=== PATIENT | female | born 1935 | race Caucasian/White ===

== ENCOUNTER 2020-09-09 09:39 | Inpatient (IN) | payer MEDICARE, MEDICAID ==
[~2020-09-09] VITALS: Ht 165.1 cm; Wt 81.0 kg
[2020-09-09] VITALS (13 sets, daily range): BP systolic 80–119; BP diastolic 45–80
--- NOTE | 2020-09-09 09:57 | Emergency Room Report ---
History of Present Illness General Chief Complaint: General Complaint Present Illness HPI Patient is an 84-year-old female sent in from nursing facility after increased generalized weakness and failure to thrive. She is noted to have low hemoglobin. Patient reportedly had decreased oral intake. She is normally hypertensive but was noted to have low blood pressure. History is markedly limited by patient's mental status and poor historian. 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 COVID-19 Screening: Positive COVID-19 COVID-19 Testing Source: Rapid Patient History Past Medical History: see triage record Reviewed Nursing Documentation: PMH: Agreed; PSxH: Agreed Review of Systems All Other Systems: negative except mentioned in HPI Physical Exam Vital Signs Date Time Temp Pulse Resp B/P (MAP) Pulse Ox O2 Delivery O2 Flow Rate FiO2 09/09/20 09:36 97.9 120 21 100/60 (73) 95 Room Air Sp02 EP Interpretation: reviewed, normal General Appearance: normal inspection, alert, GCS 15, Chronically Ill Head: atraumatic ENT: normal ENT inspection, hearing grossly normal, normal voice Neck: normal inspection, full range of motion, supple, no bony tend Respiratory: normal inspection, lungs clear, normal breath sounds, no respiratory distress, no retraction, no wheezing Cardiovascular #1: regular rate, rhythm, no edema Gastrointestinal: normal inspection, normal bowel sounds, non tender, soft, no guarding, no hernia Genitourinary: no CVA tenderness Musculoskeletal: normal inspection, back normal, normal range of motion Neurologic: alert, responsive, speech normal, normal inspection, other - Pill- rolling tremor to the right upper extremity, bilateral lower extremity weakness Psychiatric: judgement/insight normal, mood/affect normal, anxious Skin: no rash Procedures Critical Care Time Critical Care Time Patient had a critical medical condition which untreated could potentially result in life or limb threatening injury. Total critical care time excluding procedures approximately 45 minutes. Medical Decision Making Diagnostic Impression: Primary Impression: Severe anemia Additional Impressions: On continuous oral anticoagulation Hypotension ER Course Patient presented for generalized weakness.Differential diagnosis include was not limited to anemia, GI bleeding, myocardial infarction, sepsis among others. Because of complexity of patient's case laboratory tests and imaging studies were ordered. Patient was noted to have some pallor initially. Apparently had a low hemoglobin on blood draw from 1 month ago. Laboratory testing at this time showed significant anemia. Patient was typed and crossed for blood patient started on blood transfusion emergently. Patient is unable to perform consent. She has no known contacts. Dr. Yañez was contacted for inpatient management due to primary care physician. Patient be admitted to ICU in critical condition. Labs Test 09/09/20 10:00 09/09/20 10:20 09/09/20 10:50 09/09/20 11:10 Sodium Level 143 MMOL/L (136-145) Potassium Level 3.7 MMOL/L (3.5-5.1) Chloride Level 109 MMOL/L (98-107) Carbon Dioxide Level 24 MMOL/L (21-32) Anion Gap 10 mmol/L (5-15) Blood Urea Nitrogen 31 mg/dL (7-18) Creatinine 0.8 MG/DL (0.55-1.30) Estimat Glomerular Filtration Rate > 60 mL/min (>60) Glucose Level 104 MG/DL (74-106) Calcium Level 7.6 MG/DL (8.5-10.1) Phosphorus Level 2.5 MG/DL (2.5-4.9) Magnesium Level 2.0 MG/DL (1.8-2.4) Total Bilirubin 0.1 MG/DL (0.2-1.0) Aspartate Amino Transf (AST/SGOT) 41 U/L (15-37) Alanine Aminotransferase (ALT/SGPT) 29 U/L (12-78) Alkaline Phosphatase 61 U/L (46-116) Total Creatine Kinase 37 U/L (26-308) Creatine Kinase MB 0.9 NG/ML (0.0-3.6) Creatine Kinase MB Relative Index 2.4 Troponin I 0.004 ng/mL (0.000-0.056) Pro-B-Type Natriuretic Peptide 883 pg/mL (0-125) Total Protein 5.3 G/DL (6.4-8.2) Albumin 2.0 G/DL (3.4-5.0) Globulin 3.3 g/dL Albumin/Globulin Ratio 0.6 (1.0-2.7) Lipase 101 U/L (73-393) Urine Color Pale yellow Urine Appearance Slightly cloudy Urine pH 6.5 (4.5-8.0) Urine Specific Sylvester 1.015 (1.005-1.035) Urine Protein 2+ (NEGATIVE) Urine Glucose (UA) Negative (NEGATIVE) Urine Ketones Negative (NEGATIVE) Urine Blood 1+ (NEGATIVE) Urine Nitrite Negative (NEGATIVE) Urine Bilirubin Negative (NEGATIVE) Urine Urobilinogen Normal MG/DL (0.0-1.0) Urine Leukocyte Esterase 3+ (NEGATIVE) Urine RBC 0-2 /HPF (0 - 2) Urine WBC 20-30 /HPF (0 - 2) Urine Squamous Epithelial Cells Few /LPF (NONE/OCC) Urine Bacteria Few /HPF (NONE) White Blood Count 9.9 K/UL (4.8-10.8) Red Blood Count 1.63 M/UL (4.20-5.40) Hemoglobin 3.8 G/DL (12.0-16.0) Hematocrit 12.7 % (37.0-47.0) Mean Corpuscular Volume 78 FL (80-99) Mean Corpuscular Hemoglobin 23.2 PG (27.0-31.0) Mean Corpuscular Hemoglobin Concent 29.7 G/DL (32.0-36.0) Red Cell Distribution Width 29.1 % (11.6-14.8) Platelet Count 440 K/UL (150-450) Mean Platelet Volume 6.4 FL (6.5-10.1) Neutrophils (%) (Auto) % (45.0-75.0) Lymphocytes (%) (Auto) % (20.0-45.0) Monocytes (%) (Auto) % (1.0-10.0) Eosinophils (%) (Auto) % (0.0-3.0) Basophils (%) (Auto) % (0.0-2.0) Differential Total Cells Counted 100 Neutrophils % (Manual) 84 % (45-75) Lymphocytes % (Manual) 10 % (20-45) Monocytes % (Manual) 5 % (1-10) Eosinophils % (Manual) 0 % (0-3) Basophils % (Manual) 1 % (0-2) Band Neutrophils 0 % (0-8) Nucleated Red Blood Cells 2 /100 WBC Platelet Estimate Adequate Platelet Morphology Normal Polychromasia 2+ Hypochromasia 2+ Anisocytosis 3+ Microcytosis 2+ Lactic Acid Level 2.00 mmol/L (0.66-2.22) EKG Diagnostic Results Rate: tachycardiac Rhythm: NSR ST Segments: no acute changes Last Vital Signs Date Time Temp Pulse Resp B/P (MAP) Pulse Ox O2 Delivery O2 Flow Rate FiO2 09/09/20 09:36 97.9 120 21 100/60 (73) 95 Room Air Status: unchanged Disposition: ADMITTED INPATIENT Condition: Critical Asim Oakley MD Sep 09, 2020 09:57
[2020-09-09 10:41] LABS: APPEARANCE,URINE SLIGHTLY CLOUDY; BILIRUBIN, URINE NEGATIVE (NEGATIVE); COLOR,URINE PALE YELLOW; GLUCOSE, URINE (UA) NEGATIVE (NEGATIVE); KETONES,URINE NEGATIVE (NEGATIVE); LEUKOCYTE ESTERASE ,URINE 3+ (NEGATIVE); NITRITE,URINE NEGATIVE (NEGATIVE); PH,URINE 6.5 (4.5-8.0); PROTEIN,URINE 2+ (NEGATIVE); UROBILINOGEN,URINE NORMAL MG/DL (0.0-1.0)
[2020-09-09] MEDS ORDERED: CARVEDILOL6.25 MG ORAL (10:53)
[2020-09-09 10:55] LABS: ANION GAP 10 mmol/L (5-15); BLOOD UREA NITROGEN 31 mg/dL (7-18); CALCIUM 7.6 MG/DL (8.5-10.1); CARBON DIOXIDE 24 MMOL/L (21-32); CHLORIDE 109 MMOL/L (98-107); CREATININE 0.8 MG/DL (0.55-1.30); POTASSIUM 3.7 MMOL/L (3.5-5.1); SODIUM 143 MMOL/L (136-145)
[2020-09-09] MEDS ORDERED: Pantoprazole Inj IVP ONE (11:00)
[2020-09-09] MEDS ORDERED: cefTRIAXone 1 GM in NS 55 ML IVPB ONE (11:00)
[2020-09-09 11:09] LABS: ALANINE AMINOTRANSFERASE 29 U/L (12-78); ALBUMIN/GLOBULIN RATIO 0.6 (1.0-2.7); ALKALINE PHOSPHATASE 61 U/L (46-116); ASPARTATE AMINO TRANSFERASE 41 U/L (15-37); BILIRUBIN,TOTAL 0.1 MG/DL (0.2-1.0); CKMB 0.9 NG/ML (0.0-3.6); CREATINE KINASE 37 U/L (26-308); PHOSPHORUS 2.5 MG/DL (2.5-4.9)
[2020-09-09 11:12] LABS: HEMATOCRIT 12.7 % (37.0-47.0); MEAN CORPUSCULAR VOLUME 78 FL (80-99); PLATELET COUNT 440 K/UL (150-450); RED BLOOD COUNT 1.63 M/UL (4.20-5.40); RED CELL DISTRIBUTION WIDTH 29.1 % (11.6-14.8); WHITE BLOOD COUNT 9.9 K/UL (4.8-10.8)
[2020-09-09] MEDS ORDERED: FAMOTIDINE20 MG ORAL (11:18)
[2020-09-09] MEDS ORDERED: MIRTAZAPINE15 MG ORAL (11:18)
[2020-09-09] MEDS ORDERED: MULTI-VITAMIN1 EACH PO (11:18)
[2020-09-09] MEDS ORDERED: QUETIAPINE FUMA50 MG ORAL (11:18)
[2020-09-09] MEDS ORDERED: CALCIUM CARBON300 MG PO (11:18)
[2020-09-09] MEDS ORDERED: ASCORBIC ACID500 MG ORAL (11:18)
[2020-09-09 11:19] LABS: HEMOGLOBIN 3.8 G/DL (12.0-16.0)
[2020-09-09] MEDS ORDERED: FERROUS SULFAT325 MG ORAL (11:20)
[2020-09-09] MEDS ORDERED: PRADAXA150 MG ORAL (11:39)
[2020-09-09] MEDS ORDERED: FOSAMAX70 MG ORAL (11:39)
[2020-09-09] MEDS: D5NS 1,000 ML IV SCH (14:10)
[2020-09-09] MEDS ORDERED: Lidocaine 1% Plain 30 ml INJ ONE (14:46)
--- NOTE | 2020-09-09 15:00 | Emergency Room Report ---
Physical Exam Vital Signs Date Time Temp Pulse Resp B/P (MAP) Pulse Ox O2 Delivery O2 Flow Rate FiO2 09/09/20 09:36 97.9 120 21 100/60 (73) 95 Room Air 09/09/20 10:00 99 Sp02 EP Interpretation: reviewed, normal Medical Decision Making Diagnostic Impression: Primary Impression: Severe anemia Additional Impressions: On continuous oral anticoagulation Hypotension ER Course I was consulted by ICU for central line placement Emergent consent obtained As patient is nonverbal. She has critical anemia and hypotension requiring multiple IV access points Central Line Placement by me: Patient consented, sterilely draped, full prep, gown, glove, mask, time out performed. Maximal sterile barrier technique used. Anesthesia: 1% lidocaine locally Location: Femoral vein Device: Multiple lumen Technique: Seldinger technique. Secured with suture. Results: Venous return from all ports with easy saline flush. No complications. Compl : None Guide wire was retrieved and disposed of. ED Procedural Ultrasound by me: Central line placed by me using concurrent ultrasound guidance. Real time image archived in the medical record confirms vascular anatomy. Patient tolerated procedure well without complications Last Vital Signs Date Time Temp Pulse Resp B/P (MAP) Pulse Ox O2 Delivery O2 Flow Rate FiO2 09/09/20 13:42 98.1 94 18 09/09/20 13:31 92/55 97 Room Air 09/09/20 10:00 99 Disposition: ADMITTED INPATIENT Condition: Critical Referrals: Sae Yañez MD (PCP) Nella Foley D.O. Sep 09, 2020 15:00
--- NOTE | 2020-09-09 15:31 | Diagnostic Imaging Report ---
Indication: Shortness of breath Technique: One view of the chest Comparison: none Findings: Patient is rotated to the right. There may be a hiatal hernia. The lungs and pleural spaces are probably clear. The aorta is tortuous. The heart size is upper limits normal. Impression: Findings as noted. Doubt acute process
[2020-09-09] MEDS: Pantoprazole Inj IVP SCH (18:03)
[2020-09-09] MEDS: Ascorbic Acid 500mg tab ORAL SCH (18:03)
[2020-09-09] MEDS ORDERED: Dyna-Hex 2% Top Sol 2oz TOPIC SCH (21:15)
[2020-09-10] VITALS (24 sets, daily range): BP systolic 100–125; BP diastolic 54–68
[2020-09-10] MEDS: D5NS 1,000 ML IV SCH (00:11)
[2020-09-10 04:51] LABS: BASOPHILS % (AUTO) 0.7 % (0.0-2.0); EOSINOPHILS % (AUTO) 3.5 % (0.0-3.0); HEMATOCRIT 28.9 % (37.0-47.0); LYMPHOCYTES % (AUTO) 11.5 % (20.0-45.0); MEAN CORPUSCULAR VOLUME 83 FL (80-99); MONOCYTES % (AUTO) 8.4 % (1.0-10.0); NEUTROPHILS % (AUTO) 75.8 % (45.0-75.0); PLATELET COUNT 345 K/UL (150-450); RED CELL DISTRIBUTION WIDTH 18.5 % (11.6-14.8); WHITE BLOOD COUNT 9.6 K/UL (4.8-10.8)
[2020-09-10 05:12] LABS: % IRON SATURATION 12 % (15-50); IRON 28 ug/dL (50-175); TOTAL IRON BINDING CAPACITY 235 ug/dL (250-450)
[2020-09-10 05:15] LABS: ALANINE AMINOTRANSFERASE 18 U/L (12-78); ALBUMIN 1.8 G/DL (3.4-5.0); ALBUMIN/GLOBULIN RATIO 0.6 (1.0-2.7); ALKALINE PHOSPHATASE 58 U/L (46-116); ANION GAP 8 mmol/L (5-15); ASPARTATE AMINO TRANSFERASE 21 U/L (15-37); BILIRUBIN,TOTAL 0.6 MG/DL (0.2-1.0); BLOOD UREA NITROGEN 22 mg/dL (7-18); CALCIUM 6.7 MG/DL (8.5-10.1); CARBON DIOXIDE 21 MMOL/L (21-32); CHLORIDE 114 MMOL/L (98-107); CREATININE 0.7 MG/DL (0.55-1.30); POTASSIUM 3.3 MMOL/L (3.5-5.1); SODIUM 143 MMOL/L (136-145)
--- NOTE | 2020-09-10 08:00 | History and Physical Report ---
DATE OF ADMISSION: 09/09/2020 HISTORY OF PRESENT ILLNESS: 84-year-old female, well known to me. She has a history of COPD, atrial fibrillation, hypertension, and dementia. She was transferred custodial facility. She was noted to be weak and more confused. On evaluation in the emergency room, she had a hgb 3. no c/o melena, hematemesis, or hematuria. The patient was T and crossed and transfused 4 units of packed red blood cells and is now admitted to the intensive care unit. She was also noted to be in AFib with RVR upon presentation to the ER. She was awake, but weak and somnolent and withdrawn. PAST MEDICAL HISTORY: As above. PAST SURGICAL HISTORY: none CURRENT MEDICATIONS: reviewed/reconcilled ALLERGIES: None. REVIEW OF SYSTEMS: Unobtainable as the patient is confused. PHYSICAL EXAMINATION: VITAL SIGNS: Temperature 98, pulse 120, respirations 21, and blood pressure 100/60. GENERAL: The patient is well-developed well nourished female, in no apparent distress. HEENT: Head is normocephalic and atraumatic. Oropharynx is clear. Mucous membranes are moist. NECK: Supple. HEART: Irregularly irregular. LUNGS: Clear. ABDOMEN: Soft, nontender, nondistended. EXTREMITIES: There is no clubbing, cyanosis, or edema. LABORATORY DATA: UA showed 20-30 wbc's. Sodium 143, potassium nml hematocrit 12.7, platelets 440. Chest x-ray is clear. ASSESSMENT: This is an elderly female with a history of dementia and afib admitted with GI bleed. PLAN: serial cbc. IV proton pump inhibitor, IV fluids, clear liquid diet. Cardiology and GI consultations will be obtained. Check stool for occult blood and an iron panel Sae Yañez M.D. DR: TATA JOB#: [id number] CC: COURTNEY
[2020-09-10] MEDS: Carvedilol 6.25mg Tab ORAL SCH (08:35)
[2020-09-10] MEDS: Ascorbic Acid 500mg tab ORAL SCH ×2 (08:35→17:03)
[2020-09-10] MEDS: Pantoprazole Inj IVP SCH ×2 (08:35→17:03)
[2020-09-10] MEDS ORDERED: CALCIUM CARBON500 M1 PO (15:00)
[2020-09-10] MEDS ORDERED: BISACODYL5 MG ORAL (15:00)
[2020-09-10] MEDS ORDERED: DOCUSATE SODIU100 MG ORAL (15:00)
[2020-09-10] MEDS ORDERED: VITAMIN D250 MC1 PO (15:00)
[2020-09-10] MEDS ORDERED: QUETIAPINE FUMA25 MG ORAL (15:00)
[2020-09-10] MEDS ORDERED: ACETAMINOPHEN325 M1 ORAL (15:01)
--- NOTE | 2020-09-10 16:19 | General Progress Note ---
Subjective Allergies: Coded Allergies: No Known Allergies (Unverified , 09/09/20) Objective Last 24 Hour Vital Signs Date Time Temp Pulse Resp B/P (MAP) Pulse Ox O2 Delivery O2 Flow Rate FiO2 09/10/20 15:00 87 19 113/59 (77) 97 09/10/20 14:00 87 21 120/63 (82) 98 09/10/20 13:00 88 21 112/55 (74) 99 09/10/20 12:00 Room Air 09/10/20 12:00 99.1 87 20 110/58 (75) 98 09/10/20 11:49 86 09/10/20 11:00 92 19 106/59 (75) 99 09/10/20 10:00 85 20 109/63 (78) 98 09/10/20 09:00 91 23 115/60 (78) 98 09/10/20 08:35 92 106/61 09/10/20 08:00 Room Air 09/10/20 08:00 98.2 93 22 106/61 (76) 97 09/10/20 07:27 95 09/10/20 07:00 91 19 108/55 (72) 98 09/10/20 06:00 93 20 109/60 (76) 98 09/10/20 05:00 95 17 117/61 (79) 98 09/10/20 04:00 93 09/10/20 04:00 Room Air 09/10/20 04:00 98.4 95 19 122/68 (86) 99 09/10/20 03:00 82 21 106/55 (72) 98 09/10/20 02:00 78 20 124/57 (79) 99 09/10/20 01:00 75 19 109/54 (72) 99 09/10/20 00:00 Room Air 09/10/20 00:00 90 09/10/20 00:00 98.6 90 19 107/56 (73) 98 09/09/20 23:00 87 19 106/56 (73) 99 09/09/20 22:00 86 22 115/63 (80) 98 09/09/20 21:00 78 20 112/62 (79) 100 09/09/20 20:15 80 23 103/52 (69) 99 09/09/20 20:00 80 09/09/20 20:00 Room Air 09/09/20 20:00 98.7 81 22 106/52 (70) 99 09/09/20 19:00 86 17 116/59 (78) 100 09/09/20 18:00 98.8 86 20 118/66 (83) 100 09/09/20 17:00 93 21 106/67 (80) 100 Intake and Output 09/09/20 09/10/20 19:00 07:00 Intake Total 750 ml 1040 ml Output Total 160 ml 1750 ml Balance 590 ml -710 ml IV Total 500 ml 790 ml Blood Product 250 ml 250 ml Output Urine Total 160 ml 1750 ml # Voids 1 Laboratory Tests 09/10/20 04:00: White Blood Count 9.6, Red Blood Count 3.50L, Hemoglobin 10.0#L, Hematocrit 28.9#L, Mean Corpuscular Volume 83, Mean Corpuscular Hemoglobin 28.5, Mean Corpuscular Hemoglobin Concent 34.5, Red Cell Distribution Width 18.5H, Platelet Count 345, Mean Platelet Volume 6.6, Neutrophils (%) (Auto) 75.8H, Lymphocytes (%) (Auto) 11.5L, Monocytes (%) (Auto) 8.4, Eosinophils (%) (Auto) 3.5H, Basophils (%) (Auto) 0.7, Sodium Level 143, Potassium Level 3.3L, Chloride Level 114H, Carbon Dioxide Level 21, Anion Gap 8, Blood Urea Nitrogen 22H, Creatinine 0.7, Estimat Glomerular Filtration Rate > 60, Glucose Level 102, Calcium Level 6.7L, Iron Level 28L, Total Iron Binding Capacity 235L, Percent Iron Saturation 12L, Unsaturated Iron Binding 207, Total Bilirubin 0.6, Aspartate Amino Transf (AST/SGOT) 21, Alanine Aminotransferase (ALT/SGPT) 18, Alkaline Phosphatase 58, Troponin I 0.017, Total Protein 4.6L, Albumin 1.8L, Globulin 2.8, Albumin/Globulin Ratio 0.6L, Thyroid Stimulating Hormone (TSH) 3.122 Height (Feet): 5 Height (Inches): 7.00 Weight (Pounds): 130 Assessment/Plan Assessment/Plan: Assessment - Severe anemia, microcytic and Iron deficient - no melena, CG emesis or other sign of acute GIB - OBS - COPD - HTN - atrial fib Recommendations - Transfuse PRN - PPI - IV Iron - monitor labs - po ad rene - locate next of kin Thank you MD Emerita Gudino Payman MD Sep 10, 2020 16:19
--- NOTE | 2020-09-10 17:33 | Cardiology Progress Note ---
Subjective DATE OF SERVICE: Sep 10, 2020 S/P PRBC transfusions - hemoglobin has increased from 3 to 10 gm/dl. No signs of active bleeding at this time. Monitor: Sinus with atrial ectopy Objective Last 24 Hour Vital Signs Date Time Temp Pulse Resp B/P (MAP) Pulse Ox O2 Delivery O2 Flow Rate FiO2 09/10/20 17:00 92 22 124/65 (84) 98 09/10/20 16:00 99.6 87 21 120/60 (80) 97 09/10/20 16:00 Room Air 09/10/20 15:40 89 09/10/20 15:00 87 19 113/59 (77) 97 09/10/20 14:00 87 21 120/63 (82) 98 09/10/20 13:00 88 21 112/55 (74) 99 09/10/20 12:00 Room Air 09/10/20 12:00 99.1 87 20 110/58 (75) 98 09/10/20 11:49 86 09/10/20 11:00 92 19 106/59 (75) 99 09/10/20 10:00 85 20 109/63 (78) 98 09/10/20 09:00 91 23 115/60 (78) 98 09/10/20 08:35 92 106/61 09/10/20 08:00 Room Air 09/10/20 08:00 98.2 93 22 106/61 (76) 97 09/10/20 07:27 95 09/10/20 07:00 91 19 108/55 (72) 98 09/10/20 06:00 93 20 109/60 (76) 98 09/10/20 05:00 95 17 117/61 (79) 98 09/10/20 04:00 93 09/10/20 04:00 Room Air 09/10/20 04:00 98.4 95 19 122/68 (86) 99 09/10/20 03:00 82 21 106/55 (72) 98 09/10/20 02:00 78 20 124/57 (79) 99 09/10/20 01:00 75 19 109/54 (72) 99 09/10/20 00:00 Room Air 09/10/20 00:00 90 09/10/20 00:00 98.6 90 19 107/56 (73) 98 09/09/20 23:00 87 19 106/56 (73) 99 09/09/20 22:00 86 22 115/63 (80) 98 09/09/20 21:00 78 20 112/62 (79) 100 09/09/20 20:15 80 23 103/52 (69) 99 09/09/20 20:00 80 09/09/20 20:00 Room Air 09/09/20 20:00 98.7 81 22 106/52 (70) 99 09/09/20 19:00 86 17 116/59 (78) 100 09/09/20 18:00 98.8 86 20 118/66 (83) 100 ROS: unchanged from my initial evaluation on 09/09/20. RHYTHM: NSR, ST, PACs LUNGS: normal breath sounds CARDIAC: normal rate, regular rhythm, normal S1 and S2, systolic murmur - 1/6 systolic ej murmur at base ABDOMEN: normal bowel sounds, non tender, soft, no organomegaly EXTREMITIES: normal range of motion, non-tender Laboratory Tests Test 09/10/20 04:00 White Blood Count 9.6 K/UL (4.8-10.8) Red Blood Count 3.50 M/UL (4.20-5.40) L Hemoglobin 10.0 G/DL (12.0-16.0) #L Hematocrit 28.9 % (37.0-47.0) #L Mean Corpuscular Volume 83 FL (80-99) Mean Corpuscular Hemoglobin 28.5 PG (27.0-31.0) Mean Corpuscular Hemoglobin Concent 34.5 G/DL (32.0-36.0) Red Cell Distribution Width 18.5 % (11.6-14.8) H Platelet Count 345 K/UL (150-450) Mean Platelet Volume 6.6 FL (6.5-10.1) Neutrophils (%) (Auto) 75.8 % (45.0-75.0) H Lymphocytes (%) (Auto) 11.5 % (20.0-45.0) L Monocytes (%) (Auto) 8.4 % (1.0-10.0) Eosinophils (%) (Auto) 3.5 % (0.0-3.0) H Basophils (%) (Auto) 0.7 % (0.0-2.0) Sodium Level 143 MMOL/L (136-145) Potassium Level 3.3 MMOL/L (3.5-5.1) L Chloride Level 114 MMOL/L (98-107) H Carbon Dioxide Level 21 MMOL/L (21-32) Anion Gap 8 mmol/L (5-15) Blood Urea Nitrogen 22 mg/dL (7-18) H Creatinine 0.7 MG/DL (0.55-1.30) Estimat Glomerular Filtration Rate > 60 mL/min (>60) Glucose Level 102 MG/DL (74-106) Calcium Level 6.7 MG/DL (8.5-10.1) L Iron Level 28 ug/dL (50-175) L Total Iron Binding Capacity 235 ug/dL (250-450) L Percent Iron Saturation 12 % (15-50) L Unsaturated Iron Binding 207 ug/dL (112-346) Total Bilirubin 0.6 MG/DL (0.2-1.0) Aspartate Amino Transf (AST/SGOT) 21 U/L (15-37) Alanine Aminotransferase (ALT/SGPT) 18 U/L (12-78) Alkaline Phosphatase 58 U/L (46-116) Troponin I 0.017 ng/mL (0.000-0.056) Total Protein 4.6 G/DL (6.4-8.2) L Albumin 1.8 G/DL (3.4-5.0) L Globulin 2.8 g/dL Albumin/Globulin Ratio 0.6 (1.0-2.7) L Thyroid Stimulating Hormone (TSH) 3.122 uiU/mL (0.358-3.740) Microbiology Date/Time Source Procedure Growth Status 09/09/20 10:50 Nasopharynx SARS-CoV-2 RdRp Gene Assay - Final Complete 09/09/20 10:20 Urine,Clean Catch Urine Culture - Preliminary Gram Negative Alex Resulted 09/09/20 10:15 Rectum Received Assessment/Plan Assessment/Plan Severe anemia - s/p transfusions Hx GI Bleed COPD Hypertension/HHD Paroxysmal Atrial Fibrillation Cerebrovascular disease with dementia Acute on chronic diastolic CHF Iron deficiency Stool OB Monitor Hb PPI rx Hold anticoagulation and antiplatelet therapy for now Titrate antiHTN meds IV iron replacement Noah Gross MD Sep 10, 2020 17:33
--- NOTE | 2020-09-10 17:44 | Consultation ---
DATE OF CONSULTATION: 09/10/2020 GASTROENTEROLOGY CONSULTATION REPORT CONSULTING PHYSICIAN: Mario Felder MD CHIEF COMPLAINT: I was asked to see this patient for evaluation of severe anemia. HISTORY OF PRESENT ILLNESS: The patient is an 84-year-old white woman with advanced dementia and confusion who was brought into the hospital due to weakness and failure to thrive. During the course of emergency room evaluation, the patient was noted to have a hemoglobin of 3.8 and therefore was admitted to the ICU. She was initially given 4 units of blood to which she responded well. There has however been no reports of nausea, vomiting, diarrhea, constipation, hematochezia, melena, or even a bowel movement. There is no stool occult blood available thus far since she has not gone to the bathroom. The patient's red cell indices on admission did show some degree of microcytosis and there was some degree of iron deficiency on iron panel. Overall, the patient has stabilized overnight and she has not required any pressors. There is no family available. There is no other medical history available on this patient other than below. PAST MEDICAL HISTORY: History of COPD, atrial fibrillation, hypertension, dementia. FAMILY HISTORY: Noncontributory. SOCIAL HISTORY: The patient is from an assisted living facility. ALLERGIES: None. REVIEW OF SYSTEMS: Unobtainable. PHYSICAL EXAMINATION: GENERAL: Elderly white woman who is obviously confused, seen in the intensive care unit with the nurse at bedside. HEENT: Normocephalic and atraumatic. Sclerae anicteric. Oropharynx clear. NECK: Supple. CHEST: Clear to auscultation. CARDIOVASCULAR: Revealed a regular rate. ABDOMEN: Soft and nontender. EXTREMITIES: Revealed no edema. LABORATORY DATA: Noted. ASSESSMENT: This patient presents with severe anemia and some degree of microcytic iron deficient indices, which is consistent with longstanding anemia. In addition, since hematocrit level was so low and the patient was still relatively stable suggests that the anemia is not acute and not from acute blood loss. The patient could be considered for endoscopy and colonoscopy for gastrointestinal evaluation, but first she has to be stabilized and second the next of kin or durable power of sports attorney will have to be located and informed. For the time being, I would support the patient with IV fluids, blood transfusions, iron infusions, and proton pump inhibitor. RECOMMENDATIONS: Per above discussion and per orders written in the chart. Thank you for asking me to participate in the care of this patient. Mario Felder M.D. DR: PRABHAKAR JOB#: [id number] CC:
[2020-09-10] MEDS: Dyna-Hex 2% Top Sol 2oz TOPIC SCH (20:10)
[2020-09-10] MEDS ORDERED: Iron Sucrose 100 MG in NS 55 ML IVPB SCH (21:00)
[2020-09-11] VITALS (12 sets, daily range): BP systolic 92–129; BP diastolic 41–77
--- NOTE | 2020-09-11 | Consultation ---
DATE OF CONSULTATION: 09/09/2020 CARDIOLOGY CONSULTATION REQUESTING PHYSICIAN: Sae Yañez MD REASON FOR CONSULTATION: Atrial fibrillation with rapid ventricular response. HISTORY OF PRESENT ILLNESS: This is an 84-year-old female. She resides at a senior care facility. She was noted to be increasingly confused, weak, and lethargic. She was sent to the emergency room and admitted for evaluation and was noted in the emergency room to have a low blood pressure. PAST MEDICAL HISTORY: Hypertension, cerebrovascular disease with dementia, paroxysmal atrial fibrillation, COPD. ALLERGIES: None. MEDICATIONS: Reviewed. FAMILY HISTORY: Not known. SOCIAL HISTORY: No record of smoking, alcohol, or substance abuse. REVIEW OF SYSTEMS: Cannot be reliably obtained from the patient. Available data from review of records is outlined above. PHYSICAL EXAMINATION: Blood pressure 100/60, pulse 120, respiratory rate 21, afebrile, room air oxygen sat 95%. HEENT: Conjunctivae are pink. Sclerae are anicteric. Oropharynx clear. NECK: Supple. Jugular venous pressure normal. LUNGS: Clear. CARDIAC: Regular rhythm and rate. Normal S1, S2. A 2/6 systolic ejection murmur at base. ABDOMEN: Soft, nontender. EXTREMITIES: No edema. NEUROLOGIC: Moderate cognitive impairment. Nonfocal. LABORATORY DATA: Sodium 143, potassium 3.7, bicarb 24, BUN 31, creatinine 0.8, glucose 104, albumin is 2.0, natriuretic peptide 883. Troponin is 0.004. Urinalysis with 20-30 white cells. White count 9.9, hemoglobin 3.8, and lactic acid 2. IMPRESSION: 1. Severe anemia, possible chronic GI blood loss. 2. Acute myocardial ischemia. 3. Acute on chronic diastolic congestive heart failure. 4. Paroxysmal atrial fibrillation. 5. History of COPD. 6. Cerebrovascular disease with dementia. 7. Urinary tract infection. 8. Severe protein-calorie malnutrition. PLAN: 1. Packed red blood cell transfusions. 2. Cardiac monitoring. 3. Avoid all anti-platelet and anticoagulants. 4. Empiric proton pump inhibitor. 5. Serial cardiac enzymes. 6. Iron replacement. 7. Stool occult blood testing. 8. Empiric antimicrobials. 9. Nasal oxygen. 10. No role for antiarrhythmics presently. Noah Gross M.D. DR: ALEXANDRA JOB#: [id number] CC:
--- NOTE | 2020-09-11 09:09 | General Progress Note ---
Subjective ROS Limited/Unobtainable: No Allergies: Coded Allergies: No Known Allergies (Unverified , 09/09/20) Objective Last 24 Hour Vital Signs Date Time Temp Pulse Resp B/P (MAP) Pulse Ox O2 Delivery O2 Flow Rate FiO2 09/11/20 08:00 97.5 75 18 116/60 (78) 97 09/11/20 05:30 97.8 88 20 129/77 (94) 98 09/11/20 05:00 79 18 119/65 (83) 98 09/11/20 04:00 89 09/11/20 04:00 Room Air 09/11/20 04:00 99.8 83 19 118/58 (78) 96 09/11/20 03:00 79 19 116/59 (78) 97 09/11/20 02:00 87 20 124/63 (83) 96 09/11/20 01:00 86 20 113/64 (80) 97 09/11/20 00:00 85 09/11/20 00:00 99.9 79 18 93/59 (70) 97 09/11/20 00:00 Room Air 09/10/20 23:00 87 19 125/63 (83) 98 09/10/20 22:00 89 15 125/66 (85) 98 09/10/20 21:00 83 18 100/59 (73) 98 09/10/20 20:00 99.6 91 21 124/63 (83) 99 09/10/20 20:00 Room Air 09/10/20 20:00 90 09/10/20 19:00 94 17 118/66 (83) 98 09/10/20 18:00 89 22 119/60 (79) 98 09/10/20 17:00 92 22 124/65 (84) 98 09/10/20 16:00 99.6 87 21 120/60 (80) 97 09/10/20 16:00 Room Air 09/10/20 15:40 89 09/10/20 15:00 87 19 113/59 (77) 97 09/10/20 14:00 87 21 120/63 (82) 98 09/10/20 13:00 88 21 112/55 (74) 99 09/10/20 12:00 Room Air 09/10/20 12:00 99.1 87 20 110/58 (75) 98 09/10/20 11:49 86 09/10/20 11:00 92 19 106/59 (75) 99 09/10/20 10:00 85 20 109/63 (78) 98 Intake and Output 09/10/20 09/11/20 19:00 07:00 Intake Total 1228.333 ml 860 ml Output Total 520 ml 1555 ml Balance 708.333 ml -695 ml Intake Oral 50 ml IV Total 1178.333 ml 860 ml Output Urine Total 520 ml 1555 ml Height (Feet): 5 Height (Inches): 7.00 Weight (Pounds): 130 General Appearance: lethargic EENT: normal ENT inspection Neck: supple Cardiovascular: normal rate Respiratory/Chest: decreased breath sounds Abdomen: normal bowel sounds, non tender, soft Extremities: non-tender Assessment/Plan Problem List: (1) Atrial fibrillation ICD Codes: I48.91 - Unspecified atrial fibrillation SNOMED: 78893054 (2) Severe anemia ICD Codes: D64.9 - Anemia, unspecified SNOMED: 015245995 (3) Hypotension ICD Codes: I95.9 - Hypotension, unspecified SNOMED: 26980307 (4) On continuous oral anticoagulation ICD Codes: Z79.01 - snf (current) use of anticoagulants SNOMED: 568818326 Assessment/Plan: iv iron fu stool ob bowel regimen gi procedures if needed Nik Boo MD Sep 11, 2020 09:09
[2020-09-11] MEDS: Carvedilol 6.25mg Tab ORAL SCH (09:29)
[2020-09-11] MEDS: Ascorbic Acid 500mg tab ORAL SCH ×2 (09:29→17:34)
[2020-09-11] MEDS: Pantoprazole Inj IVP SCH ×2 (09:29→17:34)
[2020-09-11 09:55] LABS: BASOPHILS % (AUTO) 0.8 % (0.0-2.0); EOSINOPHILS % (AUTO) 6.2 % (0.0-3.0); HEMATOCRIT 28.8 % (37.0-47.0); HEMOGLOBIN 9.6 G/DL (12.0-16.0); LYMPHOCYTES % (AUTO) 9.4 % (20.0-45.0); MEAN CORPUSCULAR VOLUME 84 FL (80-99); MONOCYTES % (AUTO) 10.2 % (1.0-10.0); NEUTROPHILS % (AUTO) 73.4 % (45.0-75.0); PLATELET COUNT 295 K/UL (150-450); RED BLOOD COUNT 3.43 M/UL (4.20-5.40); RED CELL DISTRIBUTION WIDTH 18.7 % (11.6-14.8); WHITE BLOOD COUNT 7.2 K/UL (4.8-10.8)
[2020-09-11] MEDS: D5 1/2NS w/KCl 20mEq 1,000 ML IV SCH (11:37)
[2020-09-11] MEDS: Docusate 100mg cap ORAL SCH (17:34)
[2020-09-11] MEDS: Dyna-Hex 2% Top Sol 2oz TOPIC SCH (19:53)
--- NOTE | 2020-09-11 20:04 | Cardiology Report ---
APPROVED REPORT EKG Measurement Heart [id number] <Conclusion> Sinus tachycardia Nonspecific T wave abnormality Abnormal ECG
[2020-09-11] MEDS: Miralax 17gm pkt ORAL SCH (20:05)
[2020-09-11] MEDS: Iron Sucrose 100 MG in NS 55 ML IVPB SCH (20:06)
--- NOTE | 2020-09-11 23:11 | Cardiology Progress Note ---
Subjective DATE OF SERVICE: Sep 11, 2020 S/P PRBC transfusions - hemoglobin has remained stable. No signs of active bleeding at this time. Monitor: Sinus with atrial ectopy 2D Echo: normal ejection fxn with mild degenerative valve disease Objective Last 24 Hour Vital Signs Date Time Temp Pulse Resp B/P (MAP) Pulse Ox O2 Delivery O2 Flow Rate FiO2 09/11/20 22:00 76 126/49 (74) 09/11/20 20:00 97.9 71 20 92/41 (58) 99 09/11/20 20:00 Room Air 09/11/20 16:00 Room Air 09/11/20 16:00 97.8 74 18 97/47 (64) 97 09/11/20 16:00 67 09/11/20 12:00 68 09/11/20 12:00 Room Air 09/11/20 12:00 98.0 78 18 119/65 (83) 97 09/11/20 09:29 75 116/60 09/11/20 08:00 80 09/11/20 08:00 Room Air 09/11/20 08:00 97.5 75 18 116/60 (78) 97 09/11/20 05:30 97.8 88 20 129/77 (94) 98 09/11/20 05:00 79 18 119/65 (83) 98 09/11/20 04:00 89 09/11/20 04:00 Room Air 09/11/20 04:00 99.8 83 19 118/58 (78) 96 09/11/20 03:00 79 19 116/59 (78) 97 09/11/20 02:00 87 20 124/63 (83) 96 09/11/20 01:00 86 20 113/64 (80) 97 09/11/20 00:00 85 09/11/20 00:00 99.9 79 18 93/59 (70) 97 09/11/20 00:00 Room Air ROS: unchanged from my initial evaluation on 09/09/20. RHYTHM: NSR, ST, PACs LUNGS: normal breath sounds CARDIAC: normal rate, regular rhythm, normal S1 and S2, systolic murmur - 1/6 systolic ej murmur at base ABDOMEN: normal bowel sounds, non tender, soft, no organomegaly EXTREMITIES: normal range of motion, non-tender Laboratory Tests Test 09/11/20 09:30 09/11/20 14:40 White Blood Count 7.2 K/UL (4.8-10.8) Red Blood Count 3.43 M/UL (4.20-5.40) L Hemoglobin 9.6 G/DL (12.0-16.0) L Hematocrit 28.8 % (37.0-47.0) L Mean Corpuscular Volume 84 FL (80-99) Mean Corpuscular Hemoglobin 28.0 PG (27.0-31.0) Mean Corpuscular Hemoglobin Concent 33.3 G/DL (32.0-36.0) Red Cell Distribution Width 18.7 % (11.6-14.8) H Platelet Count 295 K/UL (150-450) Mean Platelet Volume 6.4 FL (6.5-10.1) L Neutrophils (%) (Auto) 73.4 % (45.0-75.0) Lymphocytes (%) (Auto) 9.4 % (20.0-45.0) L Monocytes (%) (Auto) 10.2 % (1.0-10.0) H Eosinophils (%) (Auto) 6.2 % (0.0-3.0) H Basophils (%) (Auto) 0.8 % (0.0-2.0) Stool Occult Blood Pending Microbiology Date/Time Source Procedure Growth Status 09/09/20 10:50 Nasopharynx SARS-CoV-2 RdRp Gene Assay - Final Complete 09/09/20 10:20 Urine,Clean Catch Urine Culture - Preliminary Gram Negative Alex Resulted 09/09/20 10:15 Rectum VRE Culture - Final NO VANCOMYCIN RESISTANT ENTEROCOCCUS ... Complete 09/09/20 10:15 Nasal Nares MRSA Culture - Final NO METHICILLIN RESISTANT STAPH AUREUS... Complete 09/09/20 10:00 Blood Blood Culture - Preliminary NO GROWTH AFTER 24 HOURS Resulted 09/09/20 10:00 Blood Blood Culture - Preliminary NO GROWTH AFTER 24 HOURS Resulted Assessment/Plan Assessment/Plan Severe anemia - s/p transfusions Hx GI Bleed COPD Hypertension/HHD Paroxysmal Atrial Fibrillation Cerebrovascular disease with dementia Acute on chronic diastolic CHF Iron deficiency Stool OB pending; if positive will need GI clearance to resume anti-coagulation. Monitor Hb PPI rx Hold anticoagulation and antiplatelet therapy for now Titrate antiHTN meds IV iron replacement Noah Gross MD Sep 11, 2020 23:11
[2020-09-12] VITALS: BP 124/54
[2020-09-12] MEDS: D5 1/2NS w/KCl 20mEq 1,000 ML IV SCH ×2 (00:55→14:31)
[2020-09-12 04:00] VITALS: BP 105/48
[2020-09-12 04:09] LABS: BASOPHILS % (AUTO) 1.1 % (0.0-2.0); EOSINOPHILS % (AUTO) 7.1 % (0.0-3.0); HEMATOCRIT 26.3 % (37.0-47.0); HEMOGLOBIN 8.7 G/DL (12.0-16.0); MEAN CORPUSCULAR VOLUME 85 FL (80-99); MONOCYTES % (AUTO) 10.4 % (1.0-10.0); NEUTROPHILS % (AUTO) 67.4 % (45.0-75.0); PLATELET COUNT 284 K/UL (150-450); RED CELL DISTRIBUTION WIDTH 19.9 % (11.6-14.8); WHITE BLOOD COUNT 6.9 K/UL (4.8-10.8)
[2020-09-12 05:31] LABS: ALANINE AMINOTRANSFERASE 13 U/L (12-78); ALBUMIN 1.7 G/DL (3.4-5.0); ALBUMIN/GLOBULIN RATIO 0.5 (1.0-2.7); ALKALINE PHOSPHATASE 65 U/L (46-116); ANION GAP 6 mmol/L (5-15); ASPARTATE AMINO TRANSFERASE 19 U/L (15-37); BILIRUBIN,TOTAL 0.6 MG/DL (0.2-1.0); BLOOD UREA NITROGEN 8 mg/dL (7-18); CALCIUM 6.8 MG/DL (8.5-10.1); CARBON DIOXIDE 22 MMOL/L (21-32); CHLORIDE 112 MMOL/L (98-107); CREATININE 0.6 MG/DL (0.55-1.30); POTASSIUM 3.5 MMOL/L (3.5-5.1); SODIUM 140 MMOL/L (136-145)
[2020-09-12 07:49] VITALS: BP 94/50
--- NOTE | 2020-09-12 09:01 | Cardiology Report ---
APPROVED REPORT EXAM: Two-dimensional and M-mode echocardiogram with Doppler and color Doppler. INDICATION Atrial Fibrillation M-Mode DIMENSIONS IVSd1.2 (0.7-1.1cm)EPSS0.6 (>1.0cm) LVDd4.1 (3.5-5.6cm) PWd0.8 (0.7-1.1cm) IVSs1.9 cm LVDs2.5 (2.5-4.0cm) PWs1.1 cm <Conclusion> Technically difficult and limited study due to poor acoustic windows. Study quality precludes accurate assessment of regional wall motion. Normal left ventricular chamber size, systolic function and wall motion. Left ventricular ejection fraction estimated to be 60 %. Mild left ventricular hypertrophy. No evidence of pericardial effusion. All other cardiac chamber sizes are within normal limits. Focal aortic valve sclerosis with adequate cusp excursion. Thickened mitral valve leaflets with normal excursion. Mitral annulus and aortic root calcification. Pulmonic valve not visualized. Normal tricuspid valve structure. IVC is normal in size with physiological collapse. A color flow and spectral Doppler study was performed and revealed: Mild aortic regurgitation. Trace mitral regurgitation. Mitral diastolic velocities suggest mild left ventricular diastolic dysfunction (Grade I). Trace tricuspid regurgitation. Tricuspid systolic velocities suggests peak right ventricular systolic pressure of 28 mmHg.
[2020-09-12] MEDS ORDERED: D5NS 1000ml IV ONE (09:18)
[2020-09-12] MEDS ORDERED: NS 275ml ONE (09:18)
[2020-09-12] MEDS ORDERED: Tubing IV Secondary IV ONE (09:18)
[2020-09-12] MEDS: Pantoprazole Inj IVP SCH ×2 (09:52→18:09)
[2020-09-12] MEDS: Docusate 100mg cap ORAL SCH ×2 (09:53→18:09)
[2020-09-12] MEDS: Ascorbic Acid 500mg tab ORAL SCH ×2 (09:53→18:09)
[2020-09-12] MEDS: Carvedilol 6.25mg Tab ORAL SCH (09:53)
--- NOTE | 2020-09-12 10:53 | General Progress Note ---
Subjective ROS Limited/Unobtainable: No Allergies: Coded Allergies: No Known Allergies (Unverified , 09/09/20) Objective Last 24 Hour Vital Signs Date Time Temp Pulse Resp B/P (MAP) Pulse Ox O2 Delivery O2 Flow Rate FiO2 09/12/20 09:53 75 94/50 09/12/20 08:00 75 09/12/20 07:49 98.2 70 18 94/50 (65) 95 09/12/20 04:00 Room Air 09/12/20 04:00 97.0 81 20 105/48 (67) 95 09/12/20 04:00 77 09/12/20 00:00 75 09/12/20 00:00 97.9 80 24 124/54 (77) 98 09/12/20 00:00 Room Air 09/11/20 22:00 76 126/49 (74) 09/11/20 20:00 70 09/11/20 20:00 97.9 71 20 92/41 (58) 99 09/11/20 20:00 Room Air 09/11/20 16:00 Room Air 09/11/20 16:00 97.8 74 18 97/47 (64) 97 09/11/20 16:00 67 09/11/20 12:00 68 09/11/20 12:00 Room Air 09/11/20 12:00 98.0 78 18 119/65 (83) 97 Intake and Output 09/11/20 09/12/20 19:00 07:00 Intake Total 600 ml 1011.25 ml Output Total 400 ml 400 ml Balance 200 ml 611.25 ml Intake Oral 180 ml IV Total 600 ml 831.25 ml Output Urine Total 400 ml 400 ml # Bowel Movements 2 2 Laboratory Tests 09/11/20 14:40: Stool Occult Blood Positive 09/12/20 04:00: White Blood Count 6.9, Red Blood Count 3.10L, Hemoglobin 8.7L, Hematocrit 26.3L, Mean Corpuscular Volume 85, Mean Corpuscular Hemoglobin 28.1, Mean Corpuscular Hemoglobin Concent 33.2, Red Cell Distribution Width 19.9H, Platelet Count 284, Mean Platelet Volume 6.9, Neutrophils (%) (Auto) 67.4, Lymphocytes (%) (Auto) 14.0L, Monocytes (%) (Auto) 10.4H, Eosinophils (%) (Auto) 7.1H, Basophils (%) (Auto) 1.1, Sodium Level 140, Potassium Level 3.5, Chloride Level 112H, Carbon Dioxide Level 22, Anion Gap 6, Blood Urea Nitrogen 8, Creatinine 0.6, Estimat Glomerular Filtration Rate > 60, Glucose Level 115H, Calcium Level 6.8L, Magnesium Level 1.8, Total Bilirubin 0.6, Aspartate Amino Transf (AST/SGOT) 19, Alanine Aminotransferase (ALT/SGPT) 13, Alkaline Phosphatase 65, Pro-B-Type Natriuretic Peptide 1214H, Total Protein 5.0L, Albumin 1.7L, Globulin 3.3, Al bumin/Globulin Ratio 0.5L Height (Feet): 5 Height (Inches): 7.00 Weight (Pounds): 130 General Appearance: alert EENT: normal ENT inspection Neck: supple Cardiovascular: normal rate Respiratory/Chest: decreased breath sounds Abdomen: normal bowel sounds, non tender, soft Extremities: non-tender Assessment/Plan Problem List: (1) Atrial fibrillation ICD Codes: I48.91 - Unspecified atrial fibrillation SNOMED: 81756453 (2) Severe anemia ICD Codes: D64.9 - Anemia, unspecified SNOMED: 793548868 (3) Hypotension ICD Codes: I95.9 - Hypotension, unspecified SNOMED: 89766141 (4) On continuous oral anticoagulation ICD Codes: Z79.01 - USP (current) use of anticoagulants SNOMED: 172684112 Assessment/Plan: iv iron fu stool ob>>> positive post transfusion with slow drop in H&H bowel regimen plan EGD and colonoscopy for tomorrow Nik Boo MD Sep 12, 2020 10:53
[2020-09-12 12:00] VITALS: BP 102/48
[2020-09-12 16:00] VITALS: BP 93/44
[2020-09-12] MEDS ORDERED: Polyethylene Glycol 238gm bottle ORAL SCH (16:00)
--- NOTE | 2020-09-12 16:08 | General Progress Note ---
Subjective ROS Limited/Unobtainable: Yes Constitutional: Reports: malaise, weakness HEENT: Reports: no symptoms Cardiovascular: Reports: no symptoms Respiratory: Reports: no symptoms Gastrointestinal/Abdominal: Reports: no symptoms Genitourinary: Reports: no symptoms Neurologic/Psychiatric: Reports: depressed, emotional problems Endocrine: Reports: no symptoms Hematologic/Lymphatic: Reports: anemia Allergies: Coded Allergies: No Known Allergies (Unverified , 09/09/20) All Systems: reviewed and negative except above Subjective no events. decreased h/h noted. no reports of gross bleeding. npo for endoscopy tomorrow. refusing to take oral prep. no fever or chills. no cp. OB+ stool noted. rate controlled currently. Objective Last 24 Hour Vital Signs Date Time Temp Pulse Resp B/P (MAP) Pulse Ox O2 Delivery O2 Flow Rate FiO2 09/12/20 12:00 97.9 70 18 102/48 (66) 97 09/12/20 12:00 61 09/12/20 09:53 75 94/50 09/12/20 09:00 Room Air 09/12/20 08:00 75 09/12/20 07:49 98.2 70 18 94/50 (65) 95 09/12/20 04:00 Room Air 09/12/20 04:00 97.0 81 20 105/48 (67) 95 09/12/20 04:00 77 09/12/20 00:00 75 09/12/20 00:00 97.9 80 24 124/54 (77) 98 09/12/20 00:00 Room Air 09/11/20 22:00 76 126/49 (74) 09/11/20 20:00 70 09/11/20 20:00 97.9 71 20 92/41 (58) 99 09/11/20 20:00 Room Air Intake and Output 09/11/20 09/12/20 19:00 07:00 Intake Total 600 ml 1011.25 ml Output Total 400 ml 400 ml Balance 200 ml 611.25 ml Intake Oral 180 ml IV Total 600 ml 831.25 ml Output Urine Total 400 ml 400 ml # Bowel Movements 2 2 Laboratory Tests 09/12/20 04:00: White Blood Count 6.9, Red Blood Count 3.10L, Hemoglobin 8.7L, Hematocrit 26.3L, Mean Corpuscular Volume 85, Mean Corpuscular Hemoglobin 28.1, Mean Corpuscular Hemoglobin Concent 33.2, Red Cell Distribution Width 19.9H, Platelet Count 284, Mean Platelet Volume 6.9, Neutrophils (%) (Auto) 67.4, Lymphocytes (%) (Auto) 14.0L, Monocytes (%) (Auto) 10.4H, Eosinophils (%) (Auto) 7.1H, Basophils (%) (Auto) 1.1, Sodium Level 140, Potassium Level 3.5, Chloride Level 112H, Carbon Dioxide Level 22, Anion Gap 6, Blood Urea Nitrogen 8, Creatinine 0.6, Estimat Glomerular Filtration Rate > 60, Glucose Level 115H, Calcium Level 6.8L, Magnesium Level 1.8, Total Bilirubin 0.6, Aspartate Amino Transf (AST/SGOT) 19, Alanine Aminotransferase (ALT/SGPT) 13, Alkaline Phosphatase 65, Pro-B-Type Natriuretic Peptide 1214H, Total Protein 5.0L, Albumin 1.7L, Globulin 3.3, Albumin/Globulin Ratio 0.5L Height (Feet): 5 Height (Inches): 7.00 Weight (Pounds): 130 General Appearance: WD/WN, alert, confused EENT: normal ENT inspection Neck: non-tender, normal alignment, supple Cardiovascular: normal peripheral pulses, normal rate, regularly irregular Respiratory/Chest: chest wall non-tender, normal breath sounds Abdomen: normal bowel sounds, non tender, soft, no organomegaly, no mass Edema: no edema noted Arm (L), no edema noted Arm (R) 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 grossly normal, alert, responsive Skin: normal pigmentation Lymphatic: normal anterior cervical (L), normal anterior cervical (R) Assessment/Plan Problem List: (1) Hypotension ICD Codes: I95.9 - Hypotension, unspecified SNOMED: 59340397 (2) Atrial fibrillation ICD Codes: I48.91 - Unspecified atrial fibrillation SNOMED: 54275688 (3) Severe anemia ICD Codes: D64.9 - Anemia, unspecified SNOMED: 416728892 (4) On continuous oral anticoagulation ICD Codes: 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 does not have responsible alliance party to consent. pt presents with life threatening anemia and GIB. endoscopy needed emergently. cannot resume anticoagulation without GI clearance/endoscopy Sae Yañez MD Sep 12, 2020 16:08
--- NOTE | 2020-09-12 16:28 | Cardiology Progress Note ---
Subjective DATE OF SERVICE: Sep 12, 2020 S/P PRBC transfusions - hemoglobin has remained stable. Prep for endoscopy in progress; cannot resume anti-coagulation without GI clearance. No signs of active bleeding at this time. Monitor: Sinus with atrial ectopy 2D Echo: normal ejection fxn with mild degenerative valve disease Objective Last 24 Hour Vital Signs Date Time Temp Pulse Resp B/P (MAP) Pulse Ox O2 Delivery O2 Flow Rate FiO2 09/12/20 12:00 97.9 70 18 102/48 (66) 97 09/12/20 12:00 61 09/12/20 09:53 75 94/50 09/12/20 09:00 Room Air 09/12/20 08:00 75 09/12/20 07:49 98.2 70 18 94/50 (65) 95 09/12/20 04:00 Room Air 09/12/20 04:00 97.0 81 20 105/48 (67) 95 09/12/20 04:00 77 09/12/20 00:00 75 09/12/20 00:00 97.9 80 24 124/54 (77) 98 09/12/20 00:00 Room Air 09/11/20 22:00 76 126/49 (74) 09/11/20 20:00 70 09/11/20 20:00 97.9 71 20 92/41 (58) 99 09/11/20 20:00 Room Air ROS: unchanged from my initial evaluation on 09/09/20. RHYTHM: NSR, ST, PACs LUNGS: normal breath sounds CARDIAC: normal rate, regular rhythm, normal S1 and S2, systolic murmur - 1/6 systolic ej murmur at base ABDOMEN: normal bowel sounds, non tender, soft, no organomegaly EXTREMITIES: normal range of motion, non-tender Laboratory Tests Test 09/12/20 04:00 White Blood Count 6.9 K/UL (4.8-10.8) Red Blood Count 3.10 M/UL (4.20-5.40) L Hemoglobin 8.7 G/DL (12.0-16.0) L Hematocrit 26.3 % (37.0-47.0) L Mean Corpuscular Volume 85 FL (80-99) Mean Corpuscular Hemoglobin 28.1 PG (27.0-31.0) Mean Corpuscular Hemoglobin Concent 33.2 G/DL (32.0-36.0) Red Cell Distribution Width 19.9 % (11.6-14.8) H Platelet Count 284 K/UL (150-450) Mean Platelet Volume 6.9 FL (6.5-10.1) Neutrophils (%) (Auto) 67.4 % (45.0-75.0) Lymphocytes (%) (Auto) 14.0 % (20.0-45.0) L Monocytes (%) (Auto) 10.4 % (1.0-10.0) H Eosinophils (%) (Auto) 7.1 % (0.0-3.0) H Basophils (%) (Auto) 1.1 % (0.0-2.0) Sodium Level 140 MMOL/L (136-145) Potassium Level 3.5 MMOL/L (3.5-5.1) Chloride Level 112 MMOL/L (98-107) H Carbon Dioxide Level 22 MMOL/L (21-32) Anion Gap 6 mmol/L (5-15) Blood Urea Nitrogen 8 mg/dL (7-18) Creatinine 0.6 MG/DL (0.55-1.30) Estimat Glomerular Filtration Rate > 60 mL/min (>60) Glucose Level 115 MG/DL (74-106) H Calcium Level 6.8 MG/DL (8.5-10.1) L Magnesium Level 1.8 MG/DL (1.8-2.4) Total Bilirubin 0.6 MG/DL (0.2-1.0) Aspartate Amino Transf (AST/SGOT) 19 U/L (15-37) Alanine Aminotransferase (ALT/SGPT) 13 U/L (12-78) Alkaline Phosphatase 65 U/L (46-116) Pro-B-Type Natriuretic Peptide 1214 pg/mL (0-125) H Total Protein 5.0 G/DL (6.4-8.2) L Albumin 1.7 G/DL (3.4-5.0) L Globulin 3.3 g/dL Albumin/Globulin Ratio 0.5 (1.0-2.7) L Assessment/Plan Assessment/Plan Severe anemia - s/p transfusions Hx GI Bleed COPD Hypertension/HHD Paroxysmal Atrial Fibrillation Cerebrovascular disease with dementia Acute on chronic diastolic CHF Iron deficiency Await GI clearance to resume anti-coagulation. Monitor Hb PPI rx Hold anticoagulation and antiplatelet therapy for now Titrate antiHTN meds; continue IVF pending resumption of oral intake IV iron replacement Noah Gross MD Sep 12, 2020 16:28
[2020-09-12 20:00] VITALS: BP 95/48
[2020-09-12] MEDS: Dyna-Hex 2% Top Sol 2oz TOPIC SCH (20:54)
[2020-09-12] MEDS: Miralax 17gm pkt ORAL SCH (20:54)
[2020-09-12] MEDS: Iron Sucrose 100 MG in NS 55 ML IVPB SCH (20:55)
[2020-09-13] VITALS (10 sets, daily range): BP systolic 91–131; BP diastolic 42–68
[2020-09-13] MEDS: D5 1/2NS w/KCl 20mEq 1,000 ML IV SCH ×2 (03:22→18:02)
[2020-09-13 04:41] LABS: BASOPHILS % (AUTO) 0.9 % (0.0-2.0); EOSINOPHILS % (AUTO) 5.8 % (0.0-3.0); HEMATOCRIT 27.1 % (37.0-47.0); LYMPHOCYTES % (AUTO) 15.1 % (20.0-45.0); MEAN CORPUSCULAR VOLUME 84 FL (80-99); MONOCYTES % (AUTO) 9.4 % (1.0-10.0); NEUTROPHILS % (AUTO) 68.8 % (45.0-75.0); PLATELET COUNT 299 K/UL (150-450); RED BLOOD COUNT 3.22 M/UL (4.20-5.40); RED CELL DISTRIBUTION WIDTH 18.4 % (11.6-14.8)
[2020-09-13 04:54] LABS: ANION GAP 5 mmol/L (5-15); BLOOD UREA NITROGEN 6 mg/dL (7-18); CALCIUM 7.2 MG/DL (8.5-10.1); CARBON DIOXIDE 23 MMOL/L (21-32); CHLORIDE 109 MMOL/L (98-107); CREATININE 0.6 MG/DL (0.55-1.30); POTASSIUM 3.5 MMOL/L (3.5-5.1); SODIUM 137 MMOL/L (136-145)
--- NOTE | 2020-09-13 07:17 | General Progress Note ---
Subjective ROS Limited/Unobtainable: No Constitutional: Reports: malaise, weakness HEENT: Reports: no symptoms Cardiovascular: Reports: no symptoms Respiratory: Reports: no symptoms Gastrointestinal/Abdominal: Reports: black stools, tarry stools Genitourinary: Reports: no symptoms Neurologic/Psychiatric: Reports: anxiety, depressed Endocrine: Reports: no symptoms Hematologic/Lymphatic: Reports: no symptoms Allergies: Coded Allergies: No Known Allergies (Unverified , 09/09/20) All Systems: reviewed and negative except above Subjective no events. refusing prep for colonoscopy. +small black stool. no fever or chills. no hematemsis. Objective Last 24 Hour Vital Signs Date Time Temp Pulse Resp B/P (MAP) Pulse Ox O2 Delivery O2 Flow Rate FiO2 09/13/20 05:18 Room Air 09/13/20 04:00 92 09/13/20 04:00 98.5 96 18 96/47 (63) 96 09/13/20 00:00 87 09/13/20 00:00 98.0 75 18 98/44 (62) 97 09/12/20 21:00 Room Air 09/12/20 20:00 98.3 77 18 95/48 (64) 96 09/12/20 20:00 74 09/12/20 16:00 97.1 65 20 93/44 (60) 96 09/12/20 16:00 66 09/12/20 12:00 97.9 70 18 102/48 (66) 97 09/12/20 12:00 61 09/12/20 09:53 75 94/50 09/12/20 09:00 Room Air 09/12/20 08:00 75 09/12/20 07:49 98.2 70 18 94/50 (65) 95 Intake and Output 09/12/20 09/13/20 19:00 07:00 Intake Total 435 ml 885 ml Output Total 350 ml 450 ml Balance 85 ml 435 ml Intake Oral 360 ml IV Total 75 ml 885 ml Output Urine Total 350 ml 450 ml # Voids 1 Laboratory Tests 09/13/20 04:30: White Blood Count 7.0, Red Blood Count 3.22L, Hemoglobin 9.0L, Hematocrit 27.1L, Mean Corpuscular Volume 84, Mean Corpuscular Hemoglobin 27.9, Mean Corpuscular Hemoglobin Concent 33.2, Red Cell Distribution Width 18.4H, Platelet Count 299, Mean Platelet Volume 6.7, Neutrophils (%) (Auto) 68.8, Lymphocytes (%) (Auto) 15.1L, Monocytes (%) (Auto) 9.4, Eosinophils (%) (Auto) 5.8H, Basophils (%) (Auto) 0.9, Sodium Level 137, Potassium Level 3.5, Chloride Level 109H, Carbon Dioxide Level 23, Anion Gap 5, Blood Urea Nitrogen 6L, Creatinine 0.6, Estimat Glomerular Filtration Rate > 60, Glucose Level 104, Calcium Level 7.2L Height (Feet): 5 Height (Inches): 6.00 Weight (Pounds): 164 General Appearance: WD/WN, alert, confused EENT: normal ENT inspection Neck: normal alignment, supple Cardiovascular: normal peripheral pulses, normal rate, regular rhythm Respiratory/Chest: chest wall non-tender, lungs clear, normal breath sounds, no respiratory distress Edema: no edema noted Arm (L), no edema noted Arm (R) 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 normal, alert, responsive, disoriented Skin: normal pigmentation Lymphatic: normal anterior cervical (L), normal anterior cervical (R) Assessment/Plan Problem List: (1) Hypotension ICD Codes: I95.9 - Hypotension, unspecified SNOMED: 57932910 (2) Atrial fibrillation ICD Codes: I48.91 - Unspecified atrial fibrillation SNOMED: 58189117 (3) Severe anemia ICD Codes: D64.9 - Anemia, unspecified SNOMED: 568799432 (4) On continuous oral anticoagulation ICD Codes: Z79.01 - care home (current) use of anticoagulants SNOMED: 562750659 Status: stable, progressing Assessment/Plan: cont PPI rx monitor h/h transfuse as needed pradaxa on hold due to GIB cont o2 resp care pt needs emergent endoscopy. does not have responsible libertarian to consent. pt presents with life threatening anemia and GIB. endoscopy needed emergently. cannot resume anticoagulation without GI clearance/endoscopy clears/ivf enema for endosocpy prep ? Sae Yañez MD Sep 13, 2020 07:17
[2020-09-13] MEDS ORDERED: Fleet's Enema 133ml RECTAL ONE (07:45)
[2020-09-13] MEDS ORDERED: Midazolam 2mg/2ml Inj IVP PRN (07:45)
[2020-09-13] MEDS ORDERED: DiphenhydrAMINE 50mg/ml Inj IVP PRN (07:45)
[2020-09-13] MEDS ORDERED: Atropine Inj 1mg/10ml Syr IVP PRN (07:45)
[2020-09-13] MEDS ORDERED: fentaNYL 100 mcg/2 mL IV PRN (07:45)
[2020-09-13] MEDS ORDERED: Labetalol 5mg/ml 20ml vial IV PRN (07:45)
--- NOTE | 2020-09-13 07:48 | Anethesia Preoperative Eval ---
Anesthesia Pre-op PMH/ROS General Date of Evaluation: Sep 13, 2020 Time of Evaluation: 07:44 Anesthesiologist: bernardo ASA Score: ASA 4 Mallampati Score Class I : Soft palate, uvula, fauces, pillars visible Class II: Soft palate, uvula, fauces visible Class III: Soft palate, base of uvula visible Class IV: Only hard plate visible Mallampati Classification: Class II Surgeon: autumn Diagnosis: gerd, anemia Surgical Procedure: egd/colonoscopy Anesthesia History: none Social History: smoking - nonsmoker Family History: no anesthesia problems Allergies: Coded Allergies: No Known Allergies (Unverified , 09/09/20) Medications: see eMAR Patient NPO?: Yes Past Medical History Cardiovascular: Reports: arrhythmia, other - cardiomyopathy, pe, hypotension Pulmonary: Reports: other - pe Neurologic/Psychiatric: Reports: other - resting tremors HEENT: Reports: cataract (L), cataract (R) Hematology/Immune: Reports: anemia, other - covid-19 negative Musculoskeletal/Integumentary: Reports: OA, other - orif left hip Anesthesia Pre-op Phys. Exam Physician Exam Last Vital Signs Date Time Temp Pulse Resp B/P (MAP) Pulse Ox O2 Delivery O2 Flow Rate FiO2 09/13/20 05:18 Room Air 09/13/20 04:00 92 09/13/20 04:00 98.5 18 96/47 (63) 96 09/09/20 16:17 2.0 100 Constitutional: NAD Neurologic: CN 2-12 intact Cardiovascular: other - irreg irreg Respiratory: CTA Gastrointestinal: S/NT/ND Airway Exam Mallampati Score: Class II MO: limited Neck: flexible TMD: 2fb ROM: limited Anesthesia Pre-op A/P Labs Microbiology Date/Time Source Procedure Growth Status 09/09/20 10:50 Nasopharynx SARS-CoV-2 RdRp Gene Assay - Final Complete 09/09/20 10:20 Urine,Clean Catch Urine Culture - Final Proteus Mirabilis Complete 09/09/20 10:15 Rectum VRE Culture - Final NO VANCOMYCIN RESISTANT ENTEROCOCCUS ... Complete 09/09/20 10:00 Blood Blood Culture - Preliminary NO GROWTH AFTER 48 HOURS Resulted Hematology Test 09/13/20 04:30 White Blood Count 7.0 K/UL (4.8-10.8) Red Blood Count 3.22 M/UL (4.20-5.40) L Hemoglobin 9.0 G/DL (12.0-16.0) L Hematocrit 27.1 % (37.0-47.0) L Mean Corpuscular Volume 84 FL (80-99) Mean Corpuscular Hemoglobin 27.9 PG (27.0-31.0) Mean Corpuscular Hemoglobin Concent 33.2 G/DL (32.0-36.0) Red Cell Distribution Width 18.4 % (11.6-14.8) H Platelet Count 299 K/UL (150-450) Mean Platelet Volume 6.7 FL (6.5-10.1) Neutrophils (%) (Auto) 68.8 % (45.0-75.0) Lymphocytes (%) (Auto) 15.1 % (20.0-45.0) L Monocytes (%) (Auto) 9.4 % (1.0-10.0) Eosinophils (%) (Auto) 5.8 % (0.0-3.0) H Basophils (%) (Auto) 0.9 % (0.0-2.0) Chemistry Test 09/13/20 04:30 Sodium Level 137 MMOL/L (136-145) Potassium Level 3.5 MMOL/L (3.5-5.1) Chloride Level 109 MMOL/L (98-107) H Carbon Dioxide Level 23 MMOL/L (21-32) Anion Gap 5 mmol/L (5-15) Blood Urea Nitrogen 6 mg/dL (7-18) L Creatinine 0.6 MG/DL (0.55-1.30) Estimat Glomerular Filtration Rate > 60 mL/min (>60) Glucose Level 104 MG/DL (74-106) Calcium Level 7.2 MG/DL (8.5-10.1) L Risk Assessment & Plan Assessment: asa4 Plan: mac Status Change Before Surgery: No Pre-Antibiotics Drug: Rupinder Boggs MD Sep 13, 2020 07:48
[2020-09-13] MEDS ORDERED: Lidocaine 1% MPF 10mg/ml 5ml ONE (08:00)
[2020-09-13] MEDS ORDERED: NS 500ML IVPB ONE (08:25)
--- NOTE | 2020-09-13 08:29 | General Progress Note ---
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 GI patient with Dark stools, OB (+) no family or DPOA scheduled for EGD / Colon based on emergency nature of the procedure Objective Last 24 Hour Vital Signs Date Time Temp Pulse Resp B/P (MAP) Pulse Ox O2 Delivery O2 Flow Rate FiO2 09/13/20 05:18 Room Air 09/13/20 04:00 92 09/13/20 04:00 98.5 96 18 96/47 (63) 96 09/13/20 00:00 87 09/13/20 00:00 98.0 75 18 98/44 (62) 97 09/12/20 21:00 Room Air 09/12/20 20:00 98.3 77 18 95/48 (64) 96 09/12/20 20:00 74 09/12/20 16:00 97.1 65 20 93/44 (60) 96 09/12/20 16:00 66 09/12/20 12:00 97.9 70 18 102/48 (66) 97 09/12/20 12:00 61 09/12/20 09:53 75 94/50 09/12/20 09:00 Room Air Intake and Output 09/12/20 09/13/20 19:00 07:00 Intake Total 435 ml 885 ml Output Total 350 ml 450 ml Balance 85 ml 435 ml Intake Oral 360 ml IV Total 75 ml 885 ml Output Urine Total 350 ml 450 ml # Voids 1 Laboratory Tests 09/13/20 04:30: White Blood Count 7.0, Red Blood Count 3.22L, Hemoglobin 9.0L, Hematocrit 27.1L, Mean Corpuscular Volume 84, Mean Corpuscular Hemoglobin 27.9, Mean Corpuscular Hemoglobin Concent 33.2, Red Cell Distribution Width 18.4H, Platelet Count 299, Mean Platelet Volume 6.7, Neutrophils (%) (Auto) 68.8, Lymphocytes (%) (Auto) 15.1L, Monocytes (%) (Auto) 9.4, Eosinophils (%) (Auto) 5.8H, Basophils (%) (Auto) 0.9, Sodium Level 137, Potassium Level 3.5, Chloride Level 109H, Carbon Dioxide Level 23, Anion Gap 5, Blood Urea Nitrogen 6L, Creatinine 0.6, Estimat Glomerular Filtration Rate > 60, Glucose Level 104, Calcium Level 7.2L Height (Feet): 5 Height (Inches): 5.00 Weight (Pounds): 166 Objective WDWN woman NCAT supple CTA RR Abd soft NT ND no edema Assessment/Plan Status: stable, progressing Assessment/Plan: Assessment - Severe anemia, microcytic and Iron deficient - OB (+) stools - Dark stools, possible due to outpatient PO Fe - OBS - COPD - HTN - atrial fib Recommendations - Transfuse PRN - PPI - IV Iron - monitor labs - EGD/Colon today - emergency consent protocol POST PROCEDURE ADDENDUM EGD: large hiatal hernia, possibly cause of penitentiary anemia incidental duodenal diverticulum Colon: Poor prep. Could only reach hepatic flexure Dark clumpy stool, typical color for PO Iron no large / mass lesions, but visualization poor Rec clears continue laxatives to flush out BM further GI endoscopy if ongoing evidence of bleeding Mario Felder MD Sep 13, 2020 08:29
--- NOTE | 2020-09-13 08:32 | Pre-Procedure Note/Attestation ---
Pre-Procedure Note/Attestation Complete Prior to Procedure Planned Procedure: not applicable Procedure Narrative: EGD Indications for Procedure Pre-Operative Diagnosis: GIB Attestation I attest that I am not able to discuss the nature of the procedure; its benefi ts; risks and complications; and alternatives (and the risks and benefits of such alternatives), prior to the procedure, with the patient (or the patient's legal automobile rental representative) since the patient has dementia and there is no legal automobile rental representative. The procedure is being done on emergency basis due to GI bleeding. I attest that I re-evaluated the patient just prior to the surgery and that there has been no change in the patient's H&P, except as documented below: Mario Felder MD Sep 13, 2020 08:32
--- NOTE | 2020-09-13 08:37 | Pre-Procedure Note/Attestation ---
Pre-Procedure Note/Attestation Complete Prior to Procedure Planned Procedure: not applicable Procedure Narrative: colonoscopy Indications for Procedure Pre-Operative Diagnosis: GIB Attestation I attest that I am not able to discuss the nature of the procedure; its benefits; risks and complications; and alternatives (and the risks and benefits of such alternatives), prior to the procedure, with the patient (or the patient's legal used equipment sales representative) since patient has dementia and there is no legal used equipment sales representative . I attest that I re-evaluated the patient just prior to the surgery and that there has been no change in the patient's H&P, except as documented below: Mario Felder MD Sep 13, 2020 08:37
[2020-09-13] MEDS: Carvedilol 6.25mg Tab ORAL SCH (09:00)
--- NOTE | 2020-09-13 09:25 | Immediate Post-Op Evaluation ---
Immediate Post-Op Evalulation Immediate Post-Op Evalulation Procedure: egd/colonoscopy w/bx Date of Evaluation: Sep 13, 2020 Time of Evaluation: 09:24 IV Fluids: 150ml 0.9ns Blood Products: none Estimated Blood Loss: negligible Urinary Output: 98.5 Blood Pressure Systolic: 98 Blood Pressure Diastolic: 51 Pulse Rate: 73 Respiratory Rate: 18 O2 Sat by Pulse Oximetry: 100 Pain Score (1-10): 0 Nausea: No Vomiting: No Complications none Patient Status: awake, reacts, patent Hydration Status: adequate Drug: Rupinder Boggs MD Sep 13, 2020 09:25
--- NOTE | 2020-09-13 09:26 | 48 Hour Post Anesthesia Eval ---
Post Anesthesia Evaluation Procedure: egd/colonoscopy w/bx Date of Evaluation: Sep 13, 2020 Time of Evaluation: 09:26 Blood Pressure Systolic: 102 0: 53 Pulse Rate: 73 Respiratory Rate: 18 Temperature (Fahrenheit): 98.5 O2 Sat by Pulse Oximetry: 99 Airway: patent Nausea: No Vomiting: No Pain Intensity: 0 Hydration Status: adequate Cardiopulmonary Status: stable Mental Status/LOC: patient returned to baseline Post-Anesthesia Complications: none Follow-up care needed: N/A Rupinder Panda MD Sep 13, 2020 09:26
[2020-09-13] MEDS: Ascorbic Acid 500mg tab ORAL SCH ×2 (10:08→18:02)
[2020-09-13] MEDS: Docusate 100mg cap ORAL SCH ×2 (10:09→17:53)
[2020-09-13] MEDS: Pantoprazole Inj IVP SCH ×2 (10:09→18:02)
[2020-09-13] MEDS: Sorbitol Solution UD 30ml ORAL SCH ×2 (10:32→17:54)
--- NOTE | 2020-09-13 20:39 | CDS Physician Query ---
Clarification is required for compliance, coding accuracy, and to reflect severity of illness for this patient Dear Dr.Kirk Pari M.D. Date: 09/13/20 CDIS Name: Jose Massey 84-year-old female, with history of COPD, atrial fibrillation, hypertension, and dementia. She was transferred senior care facility. She was noted to be weak and more confused. PHYSICAL EXAMINATION: GENERAL: Elderly white woman who is obviously confused, seen in the intensive care unit with the nurse at bedside. NEUROLOGIC: Moderate cognitive impairment. Nonfocal. NURSE NOTES: Report received from Michele RN. Patient is noted to be awake and alert x 1. Patient is noted to be confused, but knows who she is and is able to make her needs known to the staff. IMPRESSION: 1. Severe anemia, possible chronic GI blood loss. 2. Acute myocardial ischemia. 3. Acute on chronic diastolic congestive heart failure. 4. Paroxysmal atrial fibrillation. 5. History of COPD. 6. Cerebrovascular disease with dementia. 7. Urinary tract infection. 8. Severe protein-calorie malnutrition. LABORATORY DATA: UA showed 20-30 wbc's. Sodium 143, potassium nml hematocrit 12.7, platelets 440, chloride 109, Calcium 7.6, Alb 2.0 Medications: Sodium Chloride IV, Potassium Chloride IV, Mirtazapine PO, Quetiapine fumarate PO Please clarify if the patient had any of the following conditions based on the above clinical finding: [] Metabolic Encephalopathy [] Toxic Encephalopathy [x] Toxic - Metabolic Encephalopathy [] Encephalopathy, Other [] Dementia with Delirium [] Hypoxic encephalopathy [] Posterior reversible encephalopathy syndrome [] Other: [] Not Applicable Present on Admission: [x] Yes [] No [] Clinically Undetermined Physician signature Date Please also document in your Progress Notes and/or Discharge Summary and indicate if the condition was present on admission. MTDD
[2020-09-13] MEDS: Dyna-Hex 2% Top Sol 2oz TOPIC SCH (21:24)
[2020-09-13] MEDS: Miralax 17gm pkt ORAL SCH (21:24)
[2020-09-13] MEDS: Iron Sucrose 100 MG in NS 55 ML IVPB SCH (21:24)
--- NOTE | 2020-09-13 21:42 | Endoscopy Procedure Note ---
Endoscopy Procedure Note General Indication for Procedure: GIB Procedures Performed: EGD, colonoscopy Operative Findings/Diagnosis: HH Duodenal tic, black solid stool Specimen: none Pt Tolerated Procedure Well: Yes Estimated Blood Loss: none Anesthesia Anesthesiologist: Hong mosquera Anesthesia: MAC Medications Medication Given: see anesthesia record Inserted Devices Implant(s) used?: No GI Core Measures 50 yrs or older w/o bx or poly: Not Applicable 10yrs. F/U recommended: Not Applicable Mario Felder MD Sep 13, 2020 21:42
--- NOTE | 2020-09-13 21:43 | Brief Operative Note ---
Immediate Post Operative Note Operative Note Chief Complaint: GIB Pre-op Diagnosis: GIB Procedure: esophagogastroduodenoscopy colon Specimen: none Complications: none Fluids: see anesthesia Implant(s) used?: No Mario Felder MD Sep 13, 2020 21:43
--- NOTE | 2020-09-13 22:52 | Cardiology Progress Note ---
Subjective DATE OF SERVICE: Sep 13, 2020 S/P PRBC transfusions on admit - hemoglobin has remained stable. EGD revealed diverticular tic and hiatal hernia; colonoscopy with black stool No signs of active bleeding at this time. Monitor: Sinus with atrial and ventricular ectopy 2D Echo: normal ejection fxn with mild degenerative valve disease Objective Last 24 Hour Vital Signs Date Time Temp Pulse Resp B/P (MAP) Pulse Ox O2 Delivery O2 Flow Rate FiO2 09/13/20 21:00 Room Air 09/13/20 20:00 98.4 88 22 109/60 (76) 95 09/13/20 20:00 77 09/13/20 16:00 94 09/13/20 15:49 97.5 62 21 131/68 (89) 95 09/13/20 12:00 97.6 81 20 109/42 (64) 99 09/13/20 12:00 67 09/13/20 09:35 97.4 75 20 104/59 100 Nasal Cannula 3 09/13/20 09:26 73 18 99 09/13/20 09:25 73 18 100 09/13/20 09:20 71 22 105/53 100 Nasal Cannula 3 09/13/20 09:15 87 21 100/45 100 Nasal Cannula 3 09/13/20 09:12 97.7 73 18 95/51 100 Nasal Cannula 3 09/13/20 09:00 Room Air 09/13/20 09:00 75 104/59 09/13/20 08:00 78 09/13/20 08:00 98.1 94 22 91/58 (69) 96 09/13/20 05:18 Room Air 09/13/20 04:00 92 09/13/20 04:00 98.5 96 18 96/47 (63) 96 09/13/20 00:00 87 09/13/20 00:00 98.0 75 18 98/44 (62) 97 ROS: unchanged from my initial evaluation on 09/09/20. RHYTHM: NSR, ST, PACs LUNGS: normal breath sounds CARDIAC: normal rate, regular rhythm, normal S1 and S2, systolic murmur - 1/6 systolic ej murmur at base ABDOMEN: normal bowel sounds, non tender, soft, no organomegaly EXTREMITIES: normal range of motion, non-tender Laboratory Tests Test 09/13/20 04:30 White Blood Count 7.0 K/UL (4.8-10.8) Red Blood Count 3.22 M/UL (4.20-5.40) L Hemoglobin 9.0 G/DL (12.0-16.0) L Hematocrit 27.1 % (37.0-47.0) L Mean Corpuscular Volume 84 FL (80-99) Mean Corpuscular Hemoglobin 27.9 PG (27.0-31.0) Mean Corpuscular Hemoglobin Concent 33.2 G/DL (32.0-36.0) Red Cell Distribution Width 18.4 % (11.6-14.8) H Platelet Count 299 K/UL (150-450) Mean Platelet Volume 6.7 FL (6.5-10.1) Neutrophils (%) (Auto) 68.8 % (45.0-75.0) Lymphocytes (%) (Auto) 15.1 % (20.0-45.0) L Monocytes (%) (Auto) 9.4 % (1.0-10.0) Eosinophils (%) (Auto) 5.8 % (0.0-3.0) H Basophils (%) (Auto) 0.9 % (0.0-2.0) Sodium Level 137 MMOL/L (136-145) Potassium Level 3.5 MMOL/L (3.5-5.1) Chloride Level 109 MMOL/L (98-107) H Carbon Dioxide Level 23 MMOL/L (21-32) Anion Gap 5 mmol/L (5-15) Blood Urea Nitrogen 6 mg/dL (7-18) L Creatinine 0.6 MG/DL (0.55-1.30) Estimat Glomerular Filtration Rate > 60 mL/min (>60) Glucose Level 104 MG/DL (74-106) Calcium Level 7.2 MG/DL (8.5-10.1) L Assessment/Plan Assessment/Plan Severe anemia - s/p transfusions Hx GI Bleed COPD Hypertension/HHD Paroxysmal Atrial Fibrillation Non-sustained ventricular ectopy Cerebrovascular disease with dementia Acute on chronic diastolic CHF Iron deficiency Monitor Hb PPI rx Hold anticoagulation and antiplatelet therapy for now; await GI clearance. Titrate antiHTN meds; continue IVF pending resumption of oral intake IV iron replacement Noah Gross MD Sep 13, 2020 22:52
[2020-09-14] VITALS: BP 111/63
[2020-09-14 04:00] VITALS: BP 102/60
[2020-09-14 06:35] LABS: BASOPHILS % (AUTO) 1.3 % (0.0-2.0); EOSINOPHILS % (AUTO) 4.5 % (0.0-3.0); HEMATOCRIT 26.3 % (37.0-47.0); HEMOGLOBIN 8.5 G/DL (12.0-16.0); LYMPHOCYTES % (AUTO) 12.6 % (20.0-45.0); MEAN CORPUSCULAR VOLUME 86 FL (80-99); MONOCYTES % (AUTO) 12.1 % (1.0-10.0); NEUTROPHILS % (AUTO) 69.5 % (45.0-75.0); PLATELET COUNT 301 K/UL (150-450); RED BLOOD COUNT 3.04 M/UL (4.20-5.40); RED CELL DISTRIBUTION WIDTH 19.1 % (11.6-14.8); WHITE BLOOD COUNT 7.1 K/UL (4.8-10.8)
[2020-09-14] MEDS: D5 1/2NS w/KCl 20mEq 1,000 ML IV SCH (06:40)
[2020-09-14 07:06] LABS: ALANINE AMINOTRANSFERASE 11 U/L (12-78); ALBUMIN 1.4 G/DL (3.4-5.0); ALBUMIN/GLOBULIN RATIO 0.5 (1.0-2.7); ALKALINE PHOSPHATASE 67 U/L (46-116); ANION GAP 5 mmol/L (5-15); ASPARTATE AMINO TRANSFERASE 20 U/L (15-37); BILIRUBIN,TOTAL 0.6 MG/DL (0.2-1.0); BLOOD UREA NITROGEN 5 mg/dL (7-18); CALCIUM 6.6 MG/DL (8.5-10.1); CARBON DIOXIDE 21 MMOL/L (21-32); CHLORIDE 107 MMOL/L (98-107); CREATININE 0.7 MG/DL (0.55-1.30); SODIUM 133 MMOL/L (136-145)
[2020-09-14 08:00] VITALS: BP 97/55
--- NOTE | 2020-09-14 08:33 | General Progress Note ---
Subjective ROS Limited/Unobtainable: Yes Constitutional: Reports: malaise, weakness HEENT: Reports: no symptoms Cardiovascular: Reports: no symptoms Respiratory: Reports: no symptoms Gastrointestinal/Abdominal: Reports: black stools Genitourinary: Reports: no symptoms Neurologic/Psychiatric: Reports: pre-existing deficit Endocrine: Reports: no symptoms Hematologic/Lymphatic: Reports: anemia Allergies: Coded Allergies: No Known Allergies (Unverified , 09/09/20) All Systems: reviewed and negative except above Subjective no events.endoscopy results noted. no reports of bleeding. resting. had low grade temp last night. none currently. on clears. h/h slightly lower today. sodium trending down. Objective Last 24 Hour Vital Signs Date Time Temp Pulse Resp B/P (MAP) Pulse Ox O2 Delivery O2 Flow Rate FiO2 09/14/20 04:00 98.4 88 20 102/60 (74) 94 09/14/20 04:00 89 09/14/20 00:00 84 09/14/20 00:00 100.8 84 20 111/63 (79) 94 09/13/20 21:00 Room Air 09/13/20 20:00 98.4 88 22 109/60 (76) 95 09/13/20 20:00 77 09/13/20 16:00 94 09/13/20 15:49 97.5 62 21 131/68 (89) 95 09/13/20 12:00 97.6 81 20 109/42 (64) 99 09/13/20 12:00 67 09/13/20 09:35 97.4 75 20 104/59 100 Nasal Cannula 3 09/13/20 09:26 73 18 99 09/13/20 09:25 73 18 100 09/13/20 09:20 71 22 105/53 100 Nasal Cannula 3 09/13/20 09:15 87 21 100/45 100 Nasal Cannula 3 09/13/20 09:12 97.7 73 18 95/51 100 Nasal Cannula 3 09/13/20 09:00 Room Air 09/13/20 09:00 75 104/59 Intake and Output 09/13/20 09/14/20 18:59 06:59 Intake Total 120 ml 200 ml Output Total 0 ml 700 ml Balance 120 ml -500 ml Intake Oral 200 ml IV Total 120 ml Output Urine Total 700 ml Estimated Blood Loss 0 ml Laboratory Tests 09/14/20 04:00: White Blood Count 7.1, Red Blood Count 3.04L, Hemoglobin 8.5L, Hematocrit 26.3L, Mean Corpuscular Volume 86, Mean Corpuscular Hemoglobin 27.9, Mean Corpuscular Hemoglobin Concent 32.3, Red Cell Distribution Width 19.1H, Platelet Count 301, Mean Platelet Volume 6.3L, Neutrophils (%) (Auto) 69.5, Lymphocytes (%) (Auto) 12.6L, Monocytes (%) (Auto) 12.1H, Eosinophils (%) (Auto) 4.5H, Basophils (%) (Auto) 1.3, Sodium Level 133L, Potassium Level 5.0, Chloride Level 107, Carbon Dioxide Level 21, Anion Gap 5, Blood Urea Nitrogen 5L, Creatinine 0.7, Estimat Glomerular Filtration Rate > 60, Glucose Level 416#H, Calcium Level 6.6L, Total Bilirubin 0.6, Aspartate Amino Transf (AST/SGOT) 20, Alanine Aminotransferase (ALT/SGPT) 11L, Alkaline Phosphatase 67, Total Protein 4.5L, Albumin 1.4L, Globulin 3.1, Albumin/Globulin Ratio 0.5L Height (Feet): 5 Height (Inches): 5.00 Weight (Pounds): 166 Objective General Appearance: WD/WN, alert, confused EENT: normal ENT inspection Neck: normal alignment, supple Cardiovascular: normal peripheral pulses, normal rate, regular rhythm Respiratory/Chest: chest wall non-tender, lungs clear, normal breath sounds, no respiratory distress Edema: no edema noted Arm (L), no edema noted Arm (R) Neurologic: 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 events director II-XII grossly normal, alert, responsive, disoriented Skin: normal pigmentation Lymphatic: normal anterior cervical (L), normal anterior cervical (R) Assessment/Plan Problem List: (1) Hypotension ICD Codes: I95.9 - Hypotension, unspecified SNOMED: 70433352 (2) Atrial fibrillation ICD Codes: I48.91 - Unspecified atrial fibrillation SNOMED: 28825773 (3) Severe anemia ICD Codes: D64.9 - Anemia, unspecified SNOMED: 373416394 (4) On continuous oral anticoagulation ICD Codes: 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 will resume when/if cleared by GI cont o2 resp care iv abx added for proteus uti IVF adjusted repeat cbc and bmp in am swallow Sae Winn MD Sep 14, 2020 08:33
[2020-09-14] MEDS: Sorbitol Solution UD 30ml ORAL SCH ×2 (09:00→18:00)
[2020-09-14] MEDS: Docusate 100mg cap ORAL SCH ×2 (09:00→18:00)
[2020-09-14] MEDS: Ascorbic Acid 500mg tab ORAL SCH ×3 (09:00→18:00)
[2020-09-14] MEDS: Carvedilol 6.25mg Tab ORAL SCH (09:00)
[2020-09-14] MEDS: Pantoprazole Inj IVP SCH ×2 (09:43→17:24)
[2020-09-14] MEDS: cefTRIAXone 1 GM in D5W 55 ML IVPB SCH (09:44)
[2020-09-14] MEDS: D5NS 1,000 ML IV SCH ×2 (09:45→22:44)
[2020-09-14 12:00] VITALS: BP 97/47
[2020-09-14 16:00] VITALS: BP 110/53
--- NOTE | 2020-09-14 19:19 | General Progress Note ---
Subjective Allergies: Coded Allergies: No Known Allergies (Unverified , 09/09/20) Subjective Above noted BM dark yesterday no BM today, but refused laxative H&H stable Objective Last 24 Hour Vital Signs Date Time Temp Pulse Resp B/P (MAP) Pulse Ox O2 Delivery O2 Flow Rate FiO2 09/14/20 16:00 85 09/14/20 16:00 98.0 88 20 110/53 (72) 100 09/14/20 12:00 97.7 76 20 97/47 (64) 100 09/14/20 12:00 72 09/14/20 09:00 79 97/55 09/14/20 09:00 Room Air 09/14/20 08:00 97.7 79 20 97/55 (69) 100 09/14/20 08:00 70 09/14/20 04:00 98.4 88 20 102/60 (74) 94 09/14/20 04:00 89 09/14/20 00:00 84 09/14/20 00:00 100.8 84 20 111/63 (79) 94 09/13/20 21:00 Room Air 09/13/20 20:00 98.4 88 22 109/60 (76) 95 09/13/20 20:00 77 Intake and Output 09/13/20 09/14/20 19:00 07:00 Intake Total 120 ml 200 ml Output Total 0 ml 700 ml Balance 120 ml -500 ml Intake Oral 200 ml IV Total 120 ml Output Urine Total 700 ml Estimated Blood Loss 0 ml Laboratory Tests 09/14/20 04:00: White Blood Count 7.1, Red Blood Count 3.04L, Hemoglobin 8.5L, Hematocrit 26.3L, Mean Corpuscular Volume 86, Mean Corpuscular Hemoglobin 27.9, Mean Corpuscular Hemoglobin Concent 32.3, Red Cell Distribution Width 19.1H, Platelet Count 301, Mean Platelet Volume 6.3L, Neutrophils (%) (Auto) 69.5, Lymphocytes (%) (Auto) 12.6L, Monocytes (%) (Auto) 12.1H, Eosinophils (%) (Auto) 4.5H, Basophils (%) (Auto) 1.3, Sodium Level 133L, Potassium Level 5.0, Chloride Level 107, Carbon Dioxide Level 21, Anion Gap 5, Blood Urea Nitrogen 5L, Creatinine 0.7, Estimat Glomerular Filtration Rate > 60, Glucose Level 416#H, Calcium Level 6.6L, Total Bilirubin 0.6, Aspartate Amino Transf (AST/SGOT) 20, Alanine Aminotransferase (ALT/SGPT) 11L, Alkaline Phosphatase 67, Total Protein 4.5L, Albumin 1.4L, Globulin 3.1, Albumin/Globulin Ratio 0.5L Height (Feet): 5 Height (Inches): 5.00 Weight (Pounds): 166 Objective WDWN woman NCAT supple CTA RR Abd soft NT ND no edema Assessment/Plan Status: stable, progressing Assessment/Plan: Assessment - Severe anemia, microcytic and Iron deficient - large hiatal hernia - one possible cause of anemia - OB (+) stools - s/p EGD and incomplete colonoscopy - Dark stools, possible due to outpatient PO Fe - OBS - COPD - HTN - atrial fib Recommendations - Transfuse PRN - PPI - IV Iron - monitor labs - no plans for repeat colonoscopy, unless significant bleeding Mario Felder MD Sep 14, 2020 19:19
[2020-09-14 20:00] VITALS: BP 95/51
[2020-09-14] MEDS: Miralax 17gm pkt ORAL SCH ×2 (20:10→20:16)
[2020-09-14] MEDS: Dyna-Hex 2% Top Sol 2oz TOPIC SCH (20:10)
[2020-09-14] MEDS: Iron Sucrose 100 MG in NS 55 ML IVPB SCH (20:11)
--- NOTE | 2020-09-14 23:24 | Cardiology Progress Note ---
Subjective DATE OF SERVICE: Sep 14, 2020 S/P PRBC transfusions on admit - hemoglobin has remained stable. EGD revealed diverticular tic and hiatal hernia; colonoscopy with black stool No signs of active bleeding at this time. Monitor: Sinus with rare atrial ectopy. NO EPISODES OF ATRIAL FIB since admit. 2D Echo: normal ejection fxn with mild degenerative valve disease Objective Last 24 Hour Vital Signs Date Time Temp Pulse Resp B/P (MAP) Pulse Ox O2 Delivery O2 Flow Rate FiO2 09/14/20 21:00 Room Air 09/14/20 20:00 98.8 89 20 95/51 (66) 96 09/14/20 20:00 83 09/14/20 16:00 85 09/14/20 16:00 98.0 88 20 110/53 (72) 100 09/14/20 12:00 97.7 76 20 97/47 (64) 100 09/14/20 12:00 72 09/14/20 09:00 79 97/55 09/14/20 09:00 Room Air 09/14/20 08:00 97.7 79 20 97/55 (69) 100 09/14/20 08:00 70 09/14/20 04:00 98.4 88 20 102/60 (74) 94 09/14/20 04:00 89 09/14/20 00:00 84 09/14/20 00:00 100.8 84 20 111/63 (79) 94 ROS: unchanged from my initial evaluation on 09/09/20. RHYTHM: NSR, ST, PACs LUNGS: normal breath sounds CARDIAC: normal rate, regular rhythm, normal S1 and S2, systolic murmur - 1/6 systolic ej murmur at base ABDOMEN: normal bowel sounds, non tender, soft, no organomegaly EXTREMITIES: normal range of motion, non-tender Laboratory Tests Test 09/14/20 04:00 White Blood Count 7.1 K/UL (4.8-10.8) Red Blood Count 3.04 M/UL (4.20-5.40) L Hemoglobin 8.5 G/DL (12.0-16.0) L Hematocrit 26.3 % (37.0-47.0) L Mean Corpuscular Volume 86 FL (80-99) Mean Corpuscular Hemoglobin 27.9 PG (27.0-31.0) Mean Corpuscular Hemoglobin Concent 32.3 G/DL (32.0-36.0) Red Cell Distribution Width 19.1 % (11.6-14.8) H Platelet Count 301 K/UL (150-450) Mean Platelet Volume 6.3 FL (6.5-10.1) L Neutrophils (%) (Auto) 69.5 % (45.0-75.0) Lymphocytes (%) (Auto) 12.6 % (20.0-45.0) L Monocytes (%) (Auto) 12.1 % (1.0-10.0) H Eosinophils (%) (Auto) 4.5 % (0.0-3.0) H Basophils (%) (Auto) 1.3 % (0.0-2.0) Sodium Level 133 MMOL/L (136-145) L Potassium Level 5.0 MMOL/L (3.5-5.1) Chloride Level 107 MMOL/L (98-107) Carbon Dioxide Level 21 MMOL/L (21-32) Anion Gap 5 mmol/L (5-15) Blood Urea Nitrogen 5 mg/dL (7-18) L Creatinine 0.7 MG/DL (0.55-1.30) Estimat Glomerular Filtration Rate > 60 mL/min (>60) Glucose Level 416 MG/DL (74-106) #H Calcium Level 6.6 MG/DL (8.5-10.1) L Total Bilirubin 0.6 MG/DL (0.2-1.0) Aspartate Amino Transf (AST/SGOT) 20 U/L (15-37) Alanine Aminotransferase (ALT/SGPT) 11 U/L (12-78) L Alkaline Phosphatase 67 U/L (46-116) Total Protein 4.5 G/DL (6.4-8.2) L Albumin 1.4 G/DL (3.4-5.0) L Globulin 3.1 g/dL Albumin/Globulin Ratio 0.5 (1.0-2.7) L Assessment/Plan Assessment/Plan Severe anemia - s/p transfusions Hx GI Bleed COPD Hypertension/HHD Paroxysmal Atrial Fibrillation - remaining in sinus rhythm Non-sustained ventricular ectopy Cerebrovascular disease with dementia Acute on chronic diastolic CHF Iron deficiency DISCHARGE to [facility] OFF ANTI-COAGULATION at this time. Monitor Hb PPI rx Titrate antiHTN meds - maintain beta caroline. Iron replacement Reassess risk:benefit of anti-coagulation as an outpatient; may consider repeat colonoscopy and/or holter. Noah Gross MD Sep 14, 2020 23:24
[2020-09-15] VITALS: BP 99/45
[2020-09-15 04:00] VITALS: BP 102/42
[2020-09-15 05:22] LABS: BASOPHILS % (AUTO) 1.6 % (0.0-2.0); EOSINOPHILS % (AUTO) 7.4 % (0.0-3.0); HEMATOCRIT 27.2 % (37.0-47.0); HEMOGLOBIN 8.5 G/DL (12.0-16.0); LYMPHOCYTES % (AUTO) 13.7 % (20.0-45.0); MEAN CORPUSCULAR VOLUME 90 FL (80-99); MONOCYTES % (AUTO) 12.6 % (1.0-10.0); NEUTROPHILS % (AUTO) 64.6 % (45.0-75.0); PLATELET COUNT 339 K/UL (150-450); RED BLOOD COUNT 3.01 M/UL (4.20-5.40); RED CELL DISTRIBUTION WIDTH 19.7 % (11.6-14.8); WHITE BLOOD COUNT 6.7 K/UL (4.8-10.8)
[2020-09-15 05:29] LABS: ANION GAP 6 mmol/L (5-15); BLOOD UREA NITROGEN 2 mg/dL (7-18); CALCIUM 7.1 MG/DL (8.5-10.1); CARBON DIOXIDE 24 MMOL/L (21-32); CHLORIDE 109 MMOL/L (98-107); CREATININE 0.7 MG/DL (0.55-1.30); POTASSIUM 3.1 MMOL/L (3.5-5.1); SODIUM 139 MMOL/L (136-145)
[2020-09-15 08:00] VITALS: BP 90/42
[2020-09-15] MEDS: Ascorbic Acid 500mg tab ORAL SCH ×2 (08:31→17:02)
[2020-09-15] MEDS: Sorbitol Solution UD 30ml ORAL SCH ×2 (08:32→17:02)
[2020-09-15] MEDS: Pantoprazole Inj IVP SCH ×2 (08:32→17:02)
[2020-09-15] MEDS: Docusate 100mg cap ORAL SCH ×2 (08:32→17:02)
[2020-09-15] MEDS: cefTRIAXone 1 GM in D5W 55 ML IVPB SCH (08:38)
[2020-09-15] MEDS: Carvedilol 6.25mg Tab ORAL SCH (09:00)
[2020-09-15 12:00] VITALS: BP 100/49
[2020-09-15] MEDS: D5NS 1,000 ML IV SCH (12:12)
[2020-09-15 16:00] VITALS: BP 94/48
--- NOTE | 2020-09-15 16:47 | General Progress Note ---
Subjective ROS Limited/Unobtainable: Yes Constitutional: Reports: malaise, weakness HEENT: Reports: no symptoms Cardiovascular: Reports: no symptoms Respiratory: Reports: no symptoms Gastrointestinal/Abdominal: Reports: poor appetite Genitourinary: Reports: no symptoms Neurologic/Psychiatric: Reports: emotional problems, pre-existing deficit Endocrine: Reports: no symptoms Hematologic/Lymphatic: Reports: anemia Allergies: Coded Allergies: No Known Allergies (Unverified , 09/09/20) All Systems: reviewed and negative except above Subjective no events. no bleeding. h/h stable. no fevers. noncompliant with po meds. no melena or brbpr. no hematuria. Objective Last 24 Hour Vital Signs Date Time Temp Pulse Resp B/P (MAP) Pulse Ox O2 Delivery O2 Flow Rate FiO2 09/15/20 12:00 75 09/15/20 12:00 97.7 70 18 100/49 (66) 95 09/15/20 09:00 91 90/42 09/15/20 09:00 Room Air 09/15/20 08:00 67 09/15/20 08:00 97.5 91 20 90/42 (58) 97 09/15/20 04:00 99.1 80 20 102/42 (62) 95 09/15/20 04:00 72 09/15/20 00:00 99.0 78 22 99/45 (63) 95 09/15/20 00:00 79 09/14/20 21:00 Room Air 09/14/20 20:00 98.8 89 20 95/51 (66) 96 09/14/20 20:00 83 Intake and Output 09/14/20 09/15/20 19:00 07:00 Intake Total 891 ml 885 ml Output Total 450 ml 600 ml Balance 441 ml 285 ml Intake Oral 236 ml IV Total 655 ml 885 ml Output Urine Total 450 ml 600 ml # Voids 1 Laboratory Tests 09/15/20 04:15: White Blood Count 6.7, Red Blood Count 3.01L, Hemoglobin 8.5L, Hematocrit 27.2L, Mean Corpuscular Volume 90, Mean Corpuscular Hemoglobin 28.3, Mean Corpuscular Hemoglobin Concent 31.4L, Red Cell Distribution Width 19.7H, Platelet Count 339, Mean Platelet Volume 6.8, Neutrophils (%) (Auto) 64.6, Lymphocytes (%) (Auto) 13.7L, Monocytes (%) (Auto) 12.6H, Eosinophils (%) (Auto) 7.4H, Basophils (%) (Auto) 1.6, Sodium Level 139, Potassium Level 3.1L, Chloride Level 109H, Carbon Dioxide Level 24, Anion Gap 6, Blood Urea Nitrogen 2L, Creatinine 0.7, Estimat Glomerular Filtration Rate > 60, Glucose Level 138#H, Calcium Level 7.1L Height (Feet): 5 Height (Inches): 5.00 Weight (Pounds): 166 Objective General Appearance: WD/WN, alert, confused EENT: normal ENT inspection Neck: normal alignment, supple Cardiovascular: normal peripheral pulses, normal rate, regular rhythm Respiratory/Chest: chest wall non-tender, lungs clear, normal breath sounds, no respiratory distress Edema: no edema noted Arm (L), no edema noted Arm (R) 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: 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 specialist II-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 grossly normal, alert, responsive, disoriented Skin: normal pigmentation Lymphatic: normal anterior cervical (L), normal anterior cervical (R) Assessment/Plan Problem List: (1) Hypotension ICD Codes: I95.9 - Hypotension, unspecified SNOMED: 71911581 (2) Atrial fibrillation ICD Codes: I48.91 - Unspecified atrial fibrillation SNOMED: 42864115 (3) Severe anemia ICD Codes: D64.9 - Anemia, unspecified SNOMED: 039654033 (4) On continuous oral anticoagulation ICD Codes: 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 will d/w gi if able to resume. Will d/w cards if needed check duplex legs cont o2 resp care iv abx x 5 days for uti repeat cbc and bmp in am Sae Yañez MD Sep 15, 2020 16:47
--- NOTE | 2020-09-15 19:26 | Diagnostic Imaging Report ---
EXAM: US Duplex Bilateral Lower Extremities Veins CLINICAL HISTORY: DVT TECHNIQUE: Real-time duplex ultrasound scan of the bilateral lower extremity veins integrating B-mode two-dimensional vascular structure, Doppler spectral analysis, color flow Doppler imaging and compression. COMPARISON: No relevant prior studies available. FINDINGS: Right deep veins: Acute right DVT noted extending from the proximal SFV through the popliteal and calf veins. Right superficial veins: Unremarkable. No thrombus in the visualized right great saphenous vein. Left deep veins: Unremarkable. No DVT in the left common femoral, femoral, proximal deep femoral or popliteal veins. The veins demonstrate normal color flow, are normally compressible, with normal phasic flow and/or augmentation response. Left superficial veins: Unremarkable. No thrombus in the visualized left great saphenous vein. Soft tissues: No acute findings. No popliteal cyst. Tubes, lines and devices: Right femoral vein central venous catheter. IMPRESSION: 1. Right femoral vein central venous catheter. 2. Acute right DVT noted extending from the proximal SFV through the popliteal and calf veins. 3. No left DVT. <MYCVCSECTION> Communications: 09/15/20 19:32 Call Doctor Regarding Acute DVT, called Dr. Yañez on 09/15 19:32 (-07:00)
[2020-09-15 20:00] VITALS: BP 112/52
--- NOTE | 2020-09-15 20:09 | General Progress Note ---
Subjective Allergies: Coded Allergies: No Known Allergies (Unverified , 09/09/20) Subjective Above noted refuses medications awake non interactive DVT noted Objective Last 24 Hour Vital Signs Date Time Temp Pulse Resp B/P (MAP) Pulse Ox O2 Delivery O2 Flow Rate FiO2 09/15/20 16:00 97.9 92 20 94/48 (63) 95 09/15/20 16:00 82 09/15/20 12:00 75 09/15/20 12:00 97.7 70 18 100/49 (66) 95 09/15/20 09:00 91 90/42 09/15/20 09:00 Room Air 09/15/20 08:00 67 09/15/20 08:00 97.5 91 20 90/42 (58) 97 09/15/20 04:00 99.1 80 20 102/42 (62) 95 09/15/20 04:00 72 09/15/20 00:00 99.0 78 22 99/45 (63) 95 09/15/20 00:00 79 09/14/20 21:00 Room Air Intake and Output 09/14/20 09/15/20 19:00 07:00 Intake Total 891 ml 960 ml Output Total 450 ml 600 ml Balance 441 ml 360 ml Intake Oral 236 ml IV Total 655 ml 960 ml Output Urine Total 450 ml 600 ml # Voids 1 Laboratory Tests 09/15/20 04:15: White Blood Count 6.7, Red Blood Count 3.01L, Hemoglobin 8.5L, Hematocrit 27.2L, Mean Corpuscular Volume 90, Mean Corpuscular Hemoglobin 28.3, Mean Corpuscular Hemoglobin Concent 31.4L, Red Cell Distribution Width 19.7H, Platelet Count 339, Mean Platelet Volume 6.8, Neutrophils (%) (Auto) 64.6, Lymphocytes (%) (Auto) 13.7L, Monocytes (%) (Auto) 12.6H, Eosinophils (%) (Auto) 7.4H, Basophils (%) (Auto) 1.6, Sodium Level 139, Potassium Level 3.1L, Chloride Level 109H, Carbon Dioxide Level 24, Anion Gap 6, Blood Urea Nitrogen 2L, Creatinine 0.7, Estimat Glomerular Filtration Rate > 60, Glucose Level 138#H, Calcium Level 7.1L Height (Feet): 5 Height (Inches): 5.00 Weight (Pounds): 166 Objective WDWN woman NCAT supple CTA RR Abd soft NT ND no edema Assessment/Plan Status: stable, progressing Assessment/Plan: Assessment - Severe anemia, microcytic and Iron deficient - large hiatal hernia - one possible cause of anemia - OB (+) stools - s/p EGD and incomplete colonoscopy - Dark stools, possible due to outpatient PO Fe - DVT --> likely significant risk of GIB with systemic anticoagulation - OBS - COPD - HTN - atrial fib Recommendations - Suggest IVC filter +/- low dose sq heparin for management of DVT - Transfuse PRN - PPI - IV Iron - monitor labs - no plans for repeat colonoscopy, unless significant bleeding Mario Felder MD Sep 15, 2020 20:09
[2020-09-15] MEDS: Dyna-Hex 2% Top Sol 2oz TOPIC SCH (20:32)
[2020-09-15] MEDS: Miralax 17gm pkt ORAL SCH (21:02)
[2020-09-15] MEDS: Iron Sucrose 100 MG in NS 55 ML IVPB SCH (21:02)
--- NOTE | 2020-09-15 23:26 | Cardiology Progress Note ---
Subjective DATE OF SERVICE: Sep 15, 2020 Right femoral catheter in place, and duplex reveals extensive acute RLE DVT. S/P PRBC transfusions on admit - hemoglobin has remained stable. EGD revealed diverticular tic and hiatal hernia; colonoscopy with black stool No signs of active bleeding at this time. Monitor: Sinus with rare atrial ectopy. NO EPISODES OF ATRIAL FIB since admit. 2D Echo: normal ejection fxn with mild degenerative valve disease Objective Last 24 Hour Vital Signs Date Time Temp Pulse Resp B/P (MAP) Pulse Ox O2 Delivery O2 Flow Rate FiO2 09/15/20 21:00 Room Air 09/15/20 20:00 99 09/15/20 20:00 98.9 98 20 112/52 (72) 97 09/15/20 16:00 97.9 92 20 94/48 (63) 95 09/15/20 16:00 82 09/15/20 12:00 75 09/15/20 12:00 97.7 70 18 100/49 (66) 95 09/15/20 09:00 91 90/42 09/15/20 09:00 Room Air 09/15/20 08:00 67 09/15/20 08:00 97.5 91 20 90/42 (58) 97 09/15/20 04:00 99.1 80 20 102/42 (62) 95 09/15/20 04:00 72 09/15/20 00:00 99.0 78 22 99/45 (63) 95 09/15/20 00:00 79 ROS: unchanged from my initial evaluation on 09/09/20. RHYTHM: NSR, ST, PACs LUNGS: normal breath sounds CARDIAC: normal rate, regular rhythm, normal S1 and S2, systolic murmur - 1/6 systolic ej murmur at base ABDOMEN: normal bowel sounds, non tender, soft, no organomegaly EXTREMITIES: normal range of motion, non-tender Laboratory Tests Test 09/15/20 04:15 White Blood Count 6.7 K/UL (4.8-10.8) Red Blood Count 3.01 M/UL (4.20-5.40) L Hemoglobin 8.5 G/DL (12.0-16.0) L Hematocrit 27.2 % (37.0-47.0) L Mean Corpuscular Volume 90 FL (80-99) Mean Corpuscular Hemoglobin 28.3 PG (27.0-31.0) Mean Corpuscular Hemoglobin Concent 31.4 G/DL (32.0-36.0) L Red Cell Distribution Width 19.7 % (11.6-14.8) H Platelet Count 339 K/UL (150-450) Mean Platelet Volume 6.8 FL (6.5-10.1) Neutrophils (%) (Auto) 64.6 % (45.0-75.0) Lymphocytes (%) (Auto) 13.7 % (20.0-45.0) L Monocytes (%) (Auto) 12.6 % (1.0-10.0) H Eosinophils (%) (Auto) 7.4 % (0.0-3.0) H Basophils (%) (Auto) 1.6 % (0.0-2.0) Sodium Level 139 MMOL/L (136-145) Potassium Level 3.1 MMOL/L (3.5-5.1) L Chloride Level 109 MMOL/L (98-107) H Carbon Dioxide Level 24 MMOL/L (21-32) Anion Gap 6 mmol/L (5-15) Blood Urea Nitrogen 2 mg/dL (7-18) L Creatinine 0.7 MG/DL (0.55-1.30) Estimat Glomerular Filtration Rate > 60 mL/min (>60) Glucose Level 138 MG/DL (74-106) #H Calcium Level 7.1 MG/DL (8.5-10.1) L Assessment/Plan Assessment/Plan Acute DVT Severe anemia - s/p transfusions Hx GI Bleed COPD Hypertension/HHD Paroxysmal Atrial Fibrillation - remaining in sinus rhythm Non-sustained ventricular ectopy Cerebrovascular disease with dementia Acute on chronic diastolic CHF Iron deficiency DC right femoral line IVC filter Interim therapy with lovenox Monitor Hb PPI rx Titrate antiHTN meds - maintain beta caroline. Iron replacement Reassess risk:benefit of anti-coagulation as an outpatient; may consider repeat colonoscopy and/or holter. Noah Gross MD Sep 15, 2020 23:26
[2020-09-15] MEDS ORDERED: Sodium Bicarbonate 4% 2.4meq/5ml vial IV PRN (23:30)
[2020-09-15] MEDS ORDERED: Lidocaine 1% Plain 30 ml INJ PRN (23:30)
[2020-09-16] VITALS: BP 106/60
[2020-09-16] MEDS: Enoxaparin 80mg Inj SUBQ SCH ×3 (00:26→21:51)
[2020-09-16] MEDS: D5NS 1,000 ML IV SCH ×2 (00:33→14:35)
[2020-09-16 04:00] VITALS: BP 102/50
[2020-09-16 08:00] VITALS: BP 111/53
[2020-09-16 08:20] LABS: BASOPHILS % (AUTO) 2.3 % (0.0-2.0); EOSINOPHILS % (AUTO) 5.8 % (0.0-3.0); HEMATOCRIT 28.7 % (37.0-47.0); HEMOGLOBIN 9.3 G/DL (12.0-16.0); LYMPHOCYTES % (AUTO) 15.1 % (20.0-45.0); MEAN CORPUSCULAR VOLUME 89 FL (80-99); MONOCYTES % (AUTO) 10.6 % (1.0-10.0); NEUTROPHILS % (AUTO) 66.2 % (45.0-75.0); PLATELET COUNT 414 K/UL (150-450); RED BLOOD COUNT 3.22 M/UL (4.20-5.40); RED CELL DISTRIBUTION WIDTH 19.5 % (11.6-14.8); WHITE BLOOD COUNT 6.1 K/UL (4.8-10.8)
[2020-09-16] MEDS: Ascorbic Acid 500mg tab ORAL SCH ×2 (08:24→18:02)
[2020-09-16] MEDS: cefTRIAXone 1 GM in D5W 55 ML IVPB SCH (08:24)
[2020-09-16] MEDS: Docusate 100mg cap ORAL SCH ×2 (08:24→18:02)
[2020-09-16] MEDS: Pantoprazole Inj IVP SCH ×2 (08:25→18:02)
[2020-09-16] MEDS: Sorbitol Solution UD 30ml ORAL SCH ×2 (08:25→18:02)
[2020-09-16] MEDS ORDERED: Lidocaine 1% Plain 30 ml INJ PRN (08:45)
--- NOTE | 2020-09-16 08:46 | General Progress Note ---
Subjective ROS Limited/Unobtainable: Yes Constitutional: Reports: malaise, weakness HEENT: Reports: no symptoms Cardiovascular: Reports: no symptoms Respiratory: Reports: no symptoms Gastrointestinal/Abdominal: Reports: blood in stool, poor appetite Genitourinary: Reports: no symptoms Neurologic/Psychiatric: Reports: emotional problems Endocrine: Reports: no symptoms Hematologic/Lymphatic: Reports: anemia Allergies: Coded Allergies: No Known Allergies (Unverified , 09/09/20) All Systems: reviewed and negative except above Subjective no events. venous duplex + acute dvt. d/w GI. too high risk for anticoagulation. alert. noncompliant with meds Objective Last 24 Hour Vital Signs Date Time Temp Pulse Resp B/P (MAP) Pulse Ox O2 Delivery O2 Flow Rate FiO2 09/16/20 04:00 97.5 85 20 102/50 (67) 95 09/16/20 04:00 70 09/16/20 00:00 99 09/16/20 00:00 97.7 95 20 106/60 (75) 97 09/15/20 21:00 Room Air 09/15/20 20:00 99 09/15/20 20:00 98.9 98 20 112/52 (72) 97 09/15/20 16:00 97.9 92 20 94/48 (63) 95 09/15/20 16:00 82 09/15/20 12:00 75 09/15/20 12:00 97.7 70 18 100/49 (66) 95 09/15/20 09:00 91 90/42 09/15/20 09:00 Room Air Intake and Output 09/15/20 09/16/20 19:00 07:00 Intake Total 1615 ml 885 ml Output Total 300 ml 300 ml Balance 1315 ml 585 ml Intake Oral 360 ml IV Total 1255 ml 885 ml Output Urine Total 300 ml 300 ml Laboratory Tests 09/16/20 08:00: White Blood Count 6.1, Red Blood Count 3.22L, Hemoglobin 9.3L, Hematocrit 28.7L, Mean Corpuscular Volume 89, Mean Corpuscular Hemoglobin 28.8, Mean Corpuscular Hemoglobin Concent 32.2, Red Cell Distribution Width 19.5H, Platelet Count 414, Mean Platelet Volume 6.4L, Neutrophils (%) (Auto) 66.2, Lymphocytes (%) (Auto) 15.1L, Monocytes (%) (Auto) 10.6H, Eosinophils (%) (Auto) 5.8H, Basophils (%) (Auto) 2.3H, Sodium Level [Pending], Potassium Level [Pending], Chloride Level [Pending], Carbon Dioxide Level [Pending], Blood Urea Nitrogen [Pending], Creatinine [Pending], Estimat Glomerular Filtration Rate [Pending], Glucose Level [Pending], Calcium Level [Pending], Total Bilirubin [Pending], Aspartate Amino Transf (AST/SGOT) [Pending], Alanine Aminotransferase (ALT/SGPT) [Pending], Alkaline Phosphatase [Pending], Total Protein [Pending], Albumin [Pending], Globulin [Pending] Height (Feet): 5 Height (Inches): 5.00 Weight (Pounds): 166 Objective General Appearance: WD/WN, alert, confused EENT: normal ENT inspection Neck: normal alignment, supple Cardiovascular: normal peripheral pulses, normal rate, regular rhythm Respiratory/Chest: chest wall non-tender, lungs clear, normal breath sounds, no respiratory distress Edema: no edema noted Arm (L), no edema noted Arm (R) Neurologic: flagstone layer II-XII grossly normal, alert, responsive, disoriented Skin: normal pigmentation Lymphatic: normal anterior cervical (L), normal anterior cervical (R) Assessment/Plan Problem List: (1) Hypotension ICD Codes: I95.9 - Hypotension, unspecified SNOMED: 76980007 (2) Atrial fibrillation ICD Codes: I48.91 - Unspecified atrial fibrillation SNOMED: 71696177 (3) Severe anemia ICD Codes: D64.9 - Anemia, unspecified SNOMED: 521227088 (4) On continuous oral anticoagulation ICD Codes: Z79.01 - skilled nursing (current) use of anticoagulants SNOMED: 098403150 Status: stable, progressing Assessment/Plan: cont PPI rx monitor h/h transfuse as needed lovenox pt needs ivc filter emergently. too confused to consent. does not have conservator. At risk for life threatening PE without filter. Not anticoagulation candidate due to GIB. Sae Yañez MD Sep 16, 2020 08:46
[2020-09-16] MEDS: Carvedilol 6.25mg Tab ORAL SCH (09:00)
[2020-09-16 09:25] LABS: ALANINE AMINOTRANSFERASE 9 U/L (12-78); ALBUMIN 1.5 G/DL (3.4-5.0); ALBUMIN/GLOBULIN RATIO 0.6 (1.0-2.7); ALKALINE PHOSPHATASE 77 U/L (46-116); ANION GAP 7 mmol/L (5-15); ASPARTATE AMINO TRANSFERASE 15 U/L (15-37); BILIRUBIN,TOTAL 0.3 MG/DL (0.2-1.0); BLOOD UREA NITROGEN 3 mg/dL (7-18); CARBON DIOXIDE 24 MMOL/L (21-32); CHLORIDE 111 MMOL/L (98-107); CREATININE 0.7 MG/DL (0.55-1.30); POTASSIUM 3.4 MMOL/L (3.5-5.1); SODIUM 142 MMOL/L (136-145)
[2020-09-16 12:00] VITALS: BP 106/50
[2020-09-16 16:00] VITALS: BP 96/48
[2020-09-16 20:00] VITALS: BP 148/82
[2020-09-16] MEDS: Dyna-Hex 2% Top Sol 2oz TOPIC SCH (20:00)
--- NOTE | 2020-09-16 21:12 | General Progress Note ---
Subjective Allergies: Coded Allergies: No Known Allergies (Unverified , 09/09/20) Subjective Above noted non interactive DVT noted Objective Last 24 Hour Vital Signs Date Time Temp Pulse Resp B/P (MAP) Pulse Ox O2 Delivery O2 Flow Rate FiO2 09/16/20 16:00 97.0 98 20 96/48 (64) 96 09/16/20 16:00 98 09/16/20 12:00 97.7 85 18 106/50 (68) 95 09/16/20 12:00 85 09/16/20 09:00 88 111/53 09/16/20 09:00 Room Air 09/16/20 08:00 97.7 92 20 111/53 (72) 96 09/16/20 08:00 92 09/16/20 04:00 97.5 85 20 102/50 (67) 95 09/16/20 04:00 70 09/16/20 00:00 99 09/16/20 00:00 97.7 95 20 106/60 (75) 97 Intake and Output 09/15/20 09/16/20 19:00 07:00 Intake Total 1615 ml 885 ml Output Total 300 ml 300 ml Balance 1315 ml 585 ml Intake Oral 360 ml IV Total 1255 ml 885 ml Output Urine Total 300 ml 300 ml Laboratory Tests 09/16/20 08:00: White Blood Count 6.1, Red Blood Count 3.22L, Hemoglobin 9.3L, Hematocrit 28.7L, Mean Corpuscular Volume 89, Mean Corpuscular Hemoglobin 28.8, Mean Corpuscular Hemoglobin Concent 32.2, Red Cell Distribution Width 19.5H, Platelet Count 414, Mean Platelet Volume 6.4L, Neutrophils (%) (Auto) 66.2, Lymphocytes (%) (Auto) 1 5.1L, Monocytes (%) (Auto) 10.6H, Eosinophils (%) (Auto) 5.8H, Basophils (%) (Auto) 2.3H, Sodium Level 142, Potassium Level 3.4L, Chloride Level 111H, Carbon Dioxide Level 24, Anion Gap 7, Blood Urea Nitrogen 3L, Creatinine 0.7, Estimat Glomerular Filtration Rate > 60, Glucose Level 116H, Calcium Level 7.0L, Total Bilirubin 0.3, Aspartate Amino Transf (AST/SGOT) 15, Alanine Aminotransferase (ALT/SGPT) 9L, Alkaline Phosphatase 77, Total Protein 4.2L, Albumin 1.5L, Globulin 2.7, Albumin/Globulin Ratio 0.6L Height (Feet): 5 Height (Inches): 5.00 Weight (Pounds): 166 Objective [place] woman NCAT supple CTA RR Abd soft NT ND no edema Assessment/Plan Status: stable, progressing Assessment/Plan: Assessment - Severe anemia, microcytic and Iron deficient - large hiatal hernia - one possible cause of anemia - OB (+) stools - s/p EGD and incomplete colonoscopy - Dark stools, possible due to outpatient PO Fe - DVT --> likely significant risk of GIB with systemic anticoagulation - OBS - COPD - HTN - atrial fib Recommendations - Suggest IVC filter +/- low dose sq heparin for management of DVT - Agree IVC filter needed urgently to save life - Transfuse PRN - PPI - IV Iron - monitor labs - no plans for repeat colonoscopy, unless significant bleeding Mario Felder MD Sep 16, 2020 21:12
[2020-09-16] MEDS: Miralax 17gm pkt ORAL SCH (21:50)
--- NOTE | 2020-09-16 23:45 | Cardiology Progress Note ---
Subjective DATE OF SERVICE: Sep 16, 2020 Duplex reveals extensive acute RLE DVT; right femoral line removed last nite. S/P PRBC transfusions on admit - hemoglobin has remained stable. EGD revealed diverticular tic and hiatal hernia; colonoscopy with black stool No signs of active bleeding at this time. Monitor: Sinus with rare atrial ectopy. NO EPISODES OF ATRIAL FIB since admit. 2D Echo: normal ejection fxn with mild degenerative valve disease Objective Last 24 Hour Vital Signs Date Time Temp Pulse Resp B/P (MAP) Pulse Ox O2 Delivery O2 Flow Rate FiO2 09/16/20 16:00 97.0 98 20 96/48 (64) 96 09/16/20 16:00 98 09/16/20 12:00 97.7 85 18 106/50 (68) 95 09/16/20 12:00 85 09/16/20 09:00 88 111/53 09/16/20 09:00 Room Air 09/16/20 08:00 97.7 92 20 111/53 (72) 96 09/16/20 08:00 92 09/16/20 04:00 97.5 85 20 102/50 (67) 95 09/16/20 04:00 70 09/16/20 00:00 99 09/16/20 00:00 97.7 95 20 106/60 (75) 97 ROS: unchanged from my initial evaluation on 09/09/20. RHYTHM: NSR, ST, PACs LUNGS: normal breath sounds CARDIAC: normal rate, regular rhythm, normal S1 and S2, systolic murmur - 1/6 systolic ej murmur at base ABDOMEN: normal bowel sounds, non tender, soft, no organomegaly EXTREMITIES: normal range of motion, non-tender Laboratory Tests Test 09/16/20 08:00 White Blood Count 6.1 K/UL (4.8-10.8) Red Blood Count 3.22 M/UL (4.20-5.40) L Hemoglobin 9.3 G/DL (12.0-16.0) L Hematocrit 28.7 % (37.0-47.0) L Mean Corpuscular Volume 89 FL (80-99) Mean Corpuscular Hemoglobin 28.8 PG (27.0-31.0) Mean Corpuscular Hemoglobin Concent 32.2 G/DL (32.0-36.0) Red Cell Distribution Width 19.5 % (11.6-14.8) H Platelet Count 414 K/UL (150-450) Mean Platelet Volume 6.4 FL (6.5-10.1) L Neutrophils (%) (Auto) 66.2 % (45.0-75.0) Lymphocytes (%) (Auto) 15.1 % (20.0-45.0) L Monocytes (%) (Auto) 10.6 % (1.0-10.0) H Eosinophils (%) (Auto) 5.8 % (0.0-3.0) H Basophils (%) (Auto) 2.3 % (0.0-2.0) H Sodium Level 142 MMOL/L (136-145) Potassium Level 3.4 MMOL/L (3.5-5.1) L Chloride Level 111 MMOL/L (98-107) H Carbon Dioxide Level 24 MMOL/L (21-32) Anion Gap 7 mmol/L (5-15) Blood Urea Nitrogen 3 mg/dL (7-18) L Creatinine 0.7 MG/DL (0.55-1.30) Estimat Glomerular Filtration Rate > 60 mL/min (>60) Glucose Level 116 MG/DL (74-106) H Calcium Level 7.0 MG/DL (8.5-10.1) L Total Bilirubin 0.3 MG/DL (0.2-1.0) Aspartate Amino Transf (AST/SGOT) 15 U/L (15-37) Alanine Aminotransferase (ALT/SGPT) 9 U/L (12-78) L Alkaline Phosphatase 77 U/L (46-116) Total Protein 4.2 G/DL (6.4-8.2) L Albumin 1.5 G/DL (3.4-5.0) L Globulin 2.7 g/dL Albumin/Globulin Ratio 0.6 (1.0-2.7) L Assessment/Plan Assessment/Plan Acute DVT Severe anemia - s/p transfusions Hx GI Bleed COPD Hypertension/HHD Paroxysmal Atrial Fibrillation - remaining in sinus rhythm Non-sustained ventricular ectopy Cerebrovascular disease with dementia Acute on chronic diastolic CHF Iron deficiency IVC filter Interim therapy with lovenox Monitor Hb PPI rx Maintain low dose beta caroline - with "hold" parameter for low range BP. Iron replacement Reassess risk:benefit of anti-coagulation as an outpatient; may consider repeat colonoscopy and/or holter. Noah Gross MD Sep 16, 2020 23:45
[2020-09-17] VITALS (13 sets, daily range): BP systolic 100–156; BP diastolic 51–85
[2020-09-17] MEDS: D5NS 1,000 ML IV SCH ×2 (04:34→17:30)
[2020-09-17] MEDS ORDERED: Sodium Bicarbonate 4% 2.4meq/5ml vial IV PRN (05:47)
[2020-09-17 06:57] LABS: BASOPHILS % (AUTO) 2.1 % (0.0-2.0); EOSINOPHILS % (AUTO) 6.3 % (0.0-3.0); HEMATOCRIT 32.1 % (37.0-47.0); HEMOGLOBIN 9.7 G/DL (12.0-16.0); MEAN CORPUSCULAR VOLUME 92 FL (80-99); NEUTROPHILS % (AUTO) 59.7 % (45.0-75.0); PLATELET COUNT 495 K/UL (150-450); RED BLOOD COUNT 3.48 M/UL (4.20-5.40); RED CELL DISTRIBUTION WIDTH 19.1 % (11.6-14.8)
[2020-09-17 07:13] LABS: ALANINE AMINOTRANSFERASE < 6 U/L (12-78); ALBUMIN 1.4 G/DL (3.4-5.0); ALBUMIN/GLOBULIN RATIO 0.4 (1.0-2.7); ALKALINE PHOSPHATASE 83 U/L (46-116); ANION GAP 5 mmol/L (5-15); ASPARTATE AMINO TRANSFERASE 12 U/L (15-37); BILIRUBIN,TOTAL 0.3 MG/DL (0.2-1.0); BLOOD UREA NITROGEN 3 mg/dL (7-18); CALCIUM 7.3 MG/DL (8.5-10.1); CARBON DIOXIDE 25 MMOL/L (21-32); CHLORIDE 110 MMOL/L (98-107); CREATININE 0.7 MG/DL (0.55-1.30); POTASSIUM 3.2 MMOL/L (3.5-5.1); SODIUM 140 MMOL/L (136-145)
[2020-09-17] MEDS ORDERED: LORazepam Inj 2mg/ml 1ml IV SCH (08:30)
--- NOTE | 2020-09-17 08:34 | General Progress Note ---
Subjective ROS Limited/Unobtainable: No Constitutional: Reports: malaise, weakness HEENT: Reports: no symptoms Cardiovascular: Reports: no symptoms Respiratory: Reports: no symptoms Gastrointestinal/Abdominal: Reports: no symptoms Genitourinary: Reports: no symptoms Neurologic/Psychiatric: Reports: no symptoms, anxiety, emotional problems, pre- existing deficit Endocrine: Reports: no symptoms Hematologic/Lymphatic: Reports: no symptoms Allergies: Coded Allergies: No Known Allergies (Unverified , 09/09/20) All Systems: reviewed and negative except above Subjective no events. venous duplex + acute dvt. d/w GI. too high risk for anticoagulation. alert. noncompliant with meds npo for for ivc filter Objective Last 24 Hour Vital Signs Date Time Temp Pulse Resp B/P (MAP) Pulse Ox O2 Delivery O2 Flow Rate FiO2 09/17/20 04:00 81 09/17/20 04:00 97.7 85 18 121/61 (81) 96 09/17/20 00:00 97.8 79 22 156/85 (108) 96 09/17/20 00:00 80 09/16/20 21:00 Room Air 09/16/20 20:00 96.8 82 22 148/82 (104) 96 09/16/20 20:00 87 09/16/20 16:00 97.0 98 20 96/48 (64) 96 09/16/20 16:00 98 09/16/20 12:00 97.7 85 18 106/50 (68) 95 09/16/20 12:00 85 09/16/20 09:00 88 111/53 09/16/20 09:00 Room Air Intake and Output 09/16/20 09/17/20 19:00 07:00 Intake Total 1165 ml Output Total 300 ml 500 ml Balance 865 ml -500 ml Intake Oral 360 ml IV Total 805 ml Output Urine Total 300 ml 500 ml Laboratory Tests 09/17/20 06:31: White Blood Count 6.0, Red Blood Count 3.48L, Hemoglobin 9.7L, Hematocrit 32.1L, Mean Corpuscular Volume 92, Mean Corpuscular Hemoglobin 27.9, Mean Corpuscular Hemoglobin Concent 30.2L, Red Cell Distribution Width 19.1H, Platelet Count 495H , Mean Platelet Volume 6.0L, Neutrophils (%) (Auto) 59.7, Lymphocytes (%) (Auto) 20.0, Monocytes (%) (Auto) 12.0H, Eosinophils (%) (Auto) 6.3H, Basophils (%) (Auto) 2.1H, Sodium Level 140, Potassium Level 3.2L, Chloride Level 110H, Carbon Dioxide Level 25, Anion Gap 5, Blood Urea Nitrogen 3L, Creatinine 0.7, Estimat Glomerular Filtration Rate > 60, Glucose Level 95, Calcium Level 7.3L, Magnesium Level 1.8, Total Bilirubin 0.3, Aspartate Amino Transf (AST/SGOT) 12L, Alanine Aminotransferase (ALT/SGPT) < 6L, Alkaline Phosphatase 83, Pro-B-Type Natriuretic Peptide 1059H, Total Protein 4.7L, Albumin 1.4L, Globulin 3.3, Albumin/Globulin Ratio 0.4L Height (Feet): 5 Height (Inches): 5.00 Weight (Pounds): 166 Objective General Appearance: WD/WN, alert, confused EENT: normal ENT inspection Neck: normal alignment, supple Cardiovascular: normal peripheral pulses, normal rate, regular rhythm Respiratory/Chest: chest wall non-tender, lungs clear, normal breath sounds, no respiratory distress Edema: no edema noted Arm (L), no edema noted Arm (R) Neurologic: forming machine tender II-XII grossly normal, alert, responsive, disoriented Skin: normal pigmentation Lymphatic: normal anterior cervical (L), normal anterior cervical (R) Assessment/Plan Problem List: (1) Hypotension ICD Codes: I95.9 - Hypotension, unspecified SNOMED: 30024659 (2) Atrial fibrillation ICD Codes: I48.91 - Unspecified atrial fibrillation SNOMED: 49208588 (3) Severe anemia ICD Codes: D64.9 - Anemia, unspecified SNOMED: 068111021 (4) On continuous oral anticoagulation ICD Codes: Z79.01 - technician terminal and repeater (current) use of anticoagulants SNOMED: 330553987 Status: stable, progressing Assessment/Plan: cont PPI rx monitor h/h transfuse as needed lovenox pt needs ivc filter emergently. too confused to consent. does not have cons ervator. At risk for life threatening PE without filter. Not anticoagulation candidate due to GIB. replace k ativan prior to procedure Sae Yañez MD Sep 17, 2020 08:34
[2020-09-17] MEDS: Enoxaparin 80mg Inj SUBQ SCH ×2 (09:00→21:35)
[2020-09-17] MEDS: Carvedilol 6.25mg Tab ORAL SCH (09:00)
[2020-09-17 09:07] LABS: INR 1.2 (0.9-1.1)
[2020-09-17] MEDS: Ascorbic Acid 500mg tab ORAL SCH ×2 (09:14→17:56)
[2020-09-17] MEDS: Docusate 100mg cap ORAL SCH ×2 (09:14→17:55)
[2020-09-17] MEDS: cefTRIAXone 1 GM in D5W 55 ML IVPB SCH (09:15)
[2020-09-17] MEDS: Pantoprazole Inj IVP SCH ×2 (09:15→17:56)
[2020-09-17] MEDS: Sorbitol Solution UD 30ml ORAL SCH ×2 (09:15→17:56)
--- NOTE | 2020-09-17 16:26 | Pre-Procedure Note/Attestation ---
Pre-Procedure Note/Attestation Complete Prior to Procedure Planned Procedure: not applicable Procedure Narrative: IVC filter Indications for Procedure Pre-Operative Diagnosis: DVT unable to anticoagulate Attestation Patient unable to consent for herself. Emergent need for procedure documented in the EMR by the primary physician. Consent signed by primary physician Rasta Giang M.D. Sep 17, 2020 16:26
--- NOTE | 2020-09-17 16:36 | Diagnostic Imaging Report ---
Indications: Deep venous thrombosis, contraindication to anticoagulation Technique: Total sterile technique, including sterile probe cover and sterile gel, sterile gloves, hand hygiene, hat, mask,, sterile gown, large sterile drape, and preparation with 2% chlorhexidine utilized. Local anesthesia with 1% lidocaine. Ultrasound reveals patent compressible Right internal jugular vein. Under real-time ultrasound guidance, puncture right internal jugular vein, passage of a guidewire, into the inferior vena cava, over which was passed a marker band cathter. This was directed into the left common iliac vein, and a limited iliac venogram performed using hand injection of contrast. Catheter was then withdrawn to the level of the iliac venous confluence.. An inferior venacavogram performed, using hand injection of contrast. The images were reviewed. The position of the renal veins was determined. The catheter was then exchanged for the introducer assembly of the [employer] Option retrievable IVC filter. The introducer assembly was advanced further into the inferior vena cava over a guidewire, and the guidewire and dilator were removed. The filter was passed into the into the sheath. It was then positioned into the appropriate position. The filter was then deployed by unsheathing it. The filter introducer was removed, and a followup inferior venacavogram was performed using hand injection of contrast through the sheath. The filter position was deemed acceptable. The sheath was removed. Pressure held on the right neck until hemostasis was achieved. The patient tolerated procedure well, without immediate complication. Total fluoroscopy time 101.3 seconds Total fluoroscopy dose 24.5 mGy Comparison: None Findings: Inferior venacavogram demonstrates normal caliber inferior vena cava. No intracaval thrombus. Filter deployed below the renal vein inflow, above the iliac venous confluence. Impression: Successful placement of infrarenal inferior vena cava filter, as above. This a potentially retrievable IVC filter.
--- NOTE | 2020-09-17 18:10 | General Progress Note ---
Subjective Allergies: Coded Allergies: No Known Allergies (Unverified , 09/09/20) Subjective Above noted non interactive for IVC filter Objective Last 24 Hour Vital Signs Date Time Temp Pulse Resp B/P (MAP) Pulse Ox O2 Delivery O2 Flow Rate FiO2 09/17/20 17:00 97.7 73 20 113/77 (89) 94 09/17/20 17:00 95 09/17/20 16:00 96 23 133/64 (87) 100 09/17/20 16:00 96 23 133/64 (87) 100 09/17/20 15:55 95 23 130/72 (91) 99 09/17/20 15:50 99 22 143/76 (98) 99 09/17/20 15:46 98 21 2.0 09/17/20 15:45 96 23 136/64 (88) 100 09/17/20 15:40 98 23 127/72 (90) 100 09/17/20 15:30 97.2 99 23 130/74 (92) 99 09/17/20 12:00 97.7 97 20 100/51 (67) 94 09/17/20 12:00 77 09/17/20 09:00 82 104/51 09/17/20 09:00 Room Air 09/17/20 08:00 83 09/17/20 08:00 98.1 82 20 104/51 (68) 98 09/17/20 04:00 81 09/17/20 04:00 97.7 85 18 121/61 (81) 96 09/17/20 00:00 97.8 79 22 156/85 (108) 96 09/17/20 00:00 80 09/16/20 21:00 Room Air 09/16/20 20:00 96.8 82 22 148/82 (104) 96 09/16/20 20:00 87 Intake and Output 09/16/20 09/17/20 19:00 07:00 Intake Total 1165 ml Output Total 300 ml 500 ml Balance 865 ml -500 ml Intake Oral 360 ml IV Total 805 ml Output Urine Total 300 ml 500 ml Laboratory Tests 09/17/20 06:31: White Blood Count 6.0, Red Blood Count 3.48L, Hemoglobin 9.7L, Hematocrit 32.1L, Mean Corpuscular Volume 92, Mean Corpuscular Hemoglobin 27.9, Mean Corpuscular Hemoglobin Concent 30.2L, Red Cell Distribution Width 19.1H, Platelet Count 495H , Mean Platelet Volume 6.0L, Neutrophils (%) (Auto) 59.7, Lymphocytes (%) (Auto) 20.0, Monocytes (%) (Auto) 12.0H, Eosinophils (%) (Auto) 6.3H, Basophils (%) (Auto) 2.1H, Sodium Level 140, Potassium Level 3.2L, Chloride Level 110H, Carbon Dioxide Level 25, Anion Gap 5, Blood Urea Nitrogen 3L, Creatinine 0.7, Estimat Glomerular Filtration Rate > 60, Glucose Level 95, Calcium Level 7.3L, Magnesium Level 1.8, Total Bilirubin 0.3, Aspartate Amino Transf (AST/SGOT) 12L, Alanine Aminotransferase (ALT/SGPT) < 6L, Alkaline Phosphatase 83, Pro-B-Type Natriuretic Peptide 1059H, Total Protein 4.7L, Albumin 1.4L, Globulin 3.3, Albumin/Globulin Ratio 0.4L 09/17/20 08:45: Prothrombin Time 13.3H, Prothromb Time International Ratio 1.2H, Activated Partial Thromboplast Time 36H Height (Feet): 5 Height (Inches): 5.00 Weight (Pounds): 166 Objective WDWN woman NCAT supple CTA RR Abd soft NT ND no edema Assessment/Plan Status: stable, progressing Assessment/Plan: Assessment - Severe anemia, microcytic and Iron deficient - large hiatal hernia - one possible cause of anemia - OB (+) stools - s/p EGD and incomplete colonoscopy - Dark stools, possible due to outpatient PO Fe - DVT --> likely significant risk of GIB with systemic anticoagulation - OBS - COPD - HTN - atrial fib Recommendations - Suggest IVC filter +/- low dose sq heparin for management of DVT - Agree IVC filter needed urgently to save life - Transfuse PRN - PPI - IV Iron - monitor labs - no plans for repeat colonoscopy, unless significant bleeding Mario Felder MD Sep 17, 2020 18:10
[2020-09-17] MEDS: Dyna-Hex 2% Top Sol 2oz TOPIC SCH (20:00)
[2020-09-17] MEDS: Miralax 17gm pkt ORAL SCH (21:30)
[2020-09-18] VITALS (7 sets, daily range): BP systolic 99–154; BP diastolic 50–62
--- NOTE | 2020-09-18 03:17 | Cardiology Progress Note ---
Subjective DATE OF SERVICE: Sep 17, 2020 Duplex reveals extensive acute RLE DVT; right femoral line removed. IVC filter placed today. S/P PRBC transfusions on admit - hemoglobin has remained stable. EGD revealed diverticular tic and hiatal hernia; colonoscopy with black stool No signs of active bleeding at this time. Monitor: Sinus with rare atrial ectopy. NO EPISODES OF ATRIAL FIB since admit. 2D Echo: normal ejection fxn with mild degenerative valve disease Objective Last 24 Hour Vital Signs Date Time Temp Pulse Resp B/P (MAP) Pulse Ox O2 Delivery O2 Flow Rate FiO2 09/18/20 00:00 98.5 96 18 117/62 (80) 96 09/17/20 21:00 Room Air 09/17/20 20:00 88 09/17/20 20:00 98.5 96 18 107/57 (74) 96 09/17/20 17:00 97.7 73 20 113/77 (89) 94 09/17/20 17:00 95 09/17/20 16:00 96 23 133/64 (87) 100 09/17/20 16:00 96 23 133/64 (87) 100 09/17/20 15:55 95 23 130/72 (91) 99 09/17/20 15:50 99 22 143/76 (98) 99 09/17/20 15:46 98 21 2.0 09/17/20 15:45 96 23 136/64 (88) 100 09/17/20 15:40 98 23 127/72 (90) 100 09/17/20 15:30 97.2 99 23 130/74 (92) 99 09/17/20 12:00 97.7 97 20 100/51 (67) 94 09/17/20 12:00 77 09/17/20 09:00 82 104/51 09/17/20 09:00 Room Air 09/17/20 08:00 83 09/17/20 08:00 98.1 82 20 104/51 (68) 98 09/17/20 04:00 81 09/17/20 04:00 97.7 85 18 121/61 (81) 96 ROS: unchanged from my initial evaluation on 09/09/20. RHYTHM: NSR, ST, PACs LUNGS: normal breath sounds CARDIAC: normal rate, regular rhythm, normal S1 and S2, systolic murmur - 1/6 systolic ej murmur at base ABDOMEN: normal bowel sounds, non tender, soft, no organomegaly EXTREMITIES: normal range of motion, non-tender Laboratory Tests Test 09/17/20 06:31 09/17/20 08:45 White Blood Count 6.0 K/UL (4.8-10.8) Red Blood Count 3.48 M/UL (4.20-5.40) L Hemoglobin 9.7 G/DL (12.0-16.0) L Hematocrit 32.1 % (37.0-47.0) L Mean Corpuscular Volume 92 FL (80-99) Mean Corpuscular Hemoglobin 27.9 PG (27.0-31.0) Mean Corpuscular Hemoglobin Concent 30.2 G/DL (32.0-36.0) L Red Cell Distribution Width 19.1 % (11.6-14.8) H Platelet Count 495 K/UL (150-450) H Mean Platelet Volume 6.0 FL (6.5-10.1) L Neutrophils (%) (Auto) 59.7 % (45.0-75.0) Lymphocytes (%) (Auto) 20.0 % (20.0-45.0) Monocytes (%) (Auto) 12.0 % (1.0-10.0) H Eosinophils (%) (Auto) 6.3 % (0.0-3.0) H Basophils (%) (Auto) 2.1 % (0.0-2.0) H Sodium Level 140 MMOL/L (136-145) Potassium Level 3.2 MMOL/L (3.5-5.1) L Chloride Level 110 MMOL/L (98-107) H Carbon Dioxide Level 25 MMOL/L (21-32) Anion Gap 5 mmol/L (5-15) Blood Urea Nitrogen 3 mg/dL (7-18) L Creatinine 0.7 MG/DL (0.55-1.30) Estimat Glomerular Filtration Rate > 60 mL/min (>60) Glucose Level 95 MG/DL (74-106) Calcium Level 7.3 MG/DL (8.5-10.1) L Magnesium Level 1.8 MG/DL (1.8-2.4) Total Bilirubin 0.3 MG/DL (0.2-1.0) Aspartate Amino Transf (AST/SGOT) 12 U/L (15-37) L Alanine Aminotransferase (ALT/SGPT) < 6 U/L (12-78) L Alkaline Phosphatase 83 U/L (46-116) Pro-B-Type Natriuretic Peptide 1059 pg/mL (0-125) H Total Protein 4.7 G/DL (6.4-8.2) L Albumin 1.4 G/DL (3.4-5.0) L Globulin 3.3 g/dL Albumin/Globulin Ratio 0.4 (1.0-2.7) L Prothrombin Time 13.3 SEC (9.30-11.50) H Prothromb Time International Ratio 1.2 (0.9-1.1) H Activated Partial Thromboplast Time 36 SEC (23-33) H Assessment/Plan Assessment/Plan Acute DVT - s/p IVC filter Severe anemia - s/p transfusions Hx GI Bleed COPD Hypertension/HHD Paroxysmal Atrial Fibrillation - remaining in sinus rhythm Non-sustained ventricular ectopy Cerebrovascular disease with dementia Acute on chronic diastolic CHF Iron deficiency IVC filter DC anticoagulation Monitor Hb PPI rx Maintain low dose beta caroline - with "hold" parameter for low range BP. Iron replacement Reassess risk:benefit of anti-coagulation as an outpatient; may consider repeat colonoscopy and/or holter. Noah Gross MD Sep 18, 2020 03:17
[2020-09-18] MEDS: D5NS 1,000 ML IV SCH ×2 (06:50→20:10)
[2020-09-18] MEDS: Carvedilol 6.25mg Tab ORAL SCH (09:00)
[2020-09-18] MEDS: Sorbitol Solution UD 30ml ORAL SCH ×2 (09:21→17:41)
[2020-09-18] MEDS: Ascorbic Acid 500mg tab ORAL SCH ×2 (09:22→17:41)
[2020-09-18] MEDS: Pantoprazole Inj IVP SCH ×2 (09:22→17:41)
[2020-09-18] MEDS: Docusate 100mg cap ORAL SCH ×2 (09:23→17:41)
[2020-09-18] MEDS: cefTRIAXone 1 GM in D5W 55 ML IVPB SCH (09:23)
[2020-09-18] MEDS: Enoxaparin 80mg Inj SUBQ SCH ×2 (09:24→20:32)
--- NOTE | 2020-09-18 10:32 | General Progress Note ---
Subjective ROS Limited/Unobtainable: No Constitutional: Reports: malaise, weakness HEENT: Reports: no symptoms Cardiovascular: Reports: no symptoms Respiratory: Reports: no symptoms Gastrointestinal/Abdominal: Reports: no symptoms Genitourinary: Reports: no symptoms Neurologic/Psychiatric: Reports: pre-existing deficit Endocrine: Reports: no symptoms Hematologic/Lymphatic: Reports: no symptoms Allergies: Coded Allergies: No Known Allergies (Unverified , 09/09/20) All Systems: reviewed and negative except above Subjective s/p uncomplicated ivc filter. no fevers or chills. up eating breakfast. cooperative with care no bleeding noted. Objective Last 24 Hour Vital Signs Date Time Temp Pulse Resp B/P (MAP) Pulse Ox O2 Delivery O2 Flow Rate FiO2 09/18/20 09:17 110/50 (70) 09/18/20 09:00 99 110/50 09/18/20 08:00 82 09/18/20 08:00 97.9 97 20 99/58 (72) 99 09/18/20 04:00 98.6 91 18 101/60 (74) 96 09/18/20 04:00 98 09/18/20 00:00 98.5 96 18 117/62 (80) 96 09/17/20 21:00 Room Air 09/17/20 20:00 88 09/17/20 20:00 98.5 96 18 107/57 (74) 96 09/17/20 17:00 97.7 73 20 113/77 (89) 94 09/17/20 17:00 95 09/17/20 16:00 96 23 133/64 (87) 100 09/17/20 16:00 96 23 133/64 (87) 100 09/17/20 15:55 95 23 130/72 (91) 99 09/17/20 15:50 99 22 143/76 (98) 99 09/17/20 15:46 98 21 2.0 09/17/20 15:45 96 23 136/64 (88) 100 09/17/20 15:40 98 23 127/72 (90) 100 09/17/20 15:30 97.2 99 23 130/74 (92) 99 09/17/20 12:00 97.7 97 20 100/51 (67) 94 09/17/20 12:00 77 Intake and Output 09/17/20 09/18/20 19:00 07:00 Output Total 700 ml 800 ml Balance -700 ml -800 ml Output Urine Total 700 ml 800 ml Height (Feet): 5 Height (Inches): 5.00 Weight (Pounds): 166 Objective General Appearance: WD/WN, alert, confused EENT: normal ENT inspection Neck: normal alignment, supple Cardiovascular: normal peripheral pulses, normal rate, regular rhythm Respiratory/Chest: chest wall non-tender, lungs clear, normal breath sounds, no respiratory distress Edema: no edema noted Arm (L), no edema noted Arm (R) Neurologic: 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 tester 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 grossly normal, alert, responsive, disoriented Skin: normal pigmentation Lymphatic: normal anterior cervical (L), normal anterior cervical (R) Assessment/Plan Problem List: (1) Hypotension ICD Codes: I95.9 - Hypotension, unspecified SNOMED: 70627515 (2) Atrial fibrillation ICD Codes: I48.91 - Unspecified atrial fibrillation SNOMED: 58153602 (3) Severe anemia ICD Codes: D64.9 - Anemia, unspecified SNOMED: 430569723 (4) On continuous oral anticoagulation ICD Codes: 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
--- NOTE | 2020-09-18 13:29 | Cardiology Progress Note ---
Subjective DATE OF SERVICE: Sep 18, 2020 Duplex revealed extensive acute RLE DVT; right femoral line removed. IVC filter placed yesterday. No bleeding complications noted. S/P PRBC transfusions on admit - hemoglobin has remained stable. EGD revealed diverticular tic and hiatal hernia; colonoscopy with black stool No signs of active bleeding at this time. Monitor: Sinus with rare atrial ectopy. NO EPISODES OF ATRIAL FIB since admit. 2D Echo: normal ejection fxn with mild degenerative valve disease Objective Last 24 Hour Vital Signs Date Time Temp Pulse Resp B/P (MAP) Pulse Ox O2 Delivery O2 Flow Rate FiO2 09/18/20 12:00 78 09/18/20 12:00 97.7 78 20 108/52 (70) 99 09/18/20 09:17 110/50 (70) 09/18/20 09:00 99 110/50 09/18/20 08:00 82 09/18/20 08:00 97.9 97 20 99/58 (72) 99 09/18/20 04:00 98.6 91 18 101/60 (74) 96 09/18/20 04:00 98 09/18/20 00:00 98.5 96 18 117/62 (80) 96 09/17/20 21:00 Room Air 09/17/20 20:00 88 09/17/20 20:00 98.5 96 18 107/57 (74) 96 09/17/20 17:00 97.7 73 20 113/77 (89) 94 09/17/20 17:00 95 09/17/20 16:00 96 23 133/64 (87) 100 09/17/20 16:00 96 23 133/64 (87) 100 09/17/20 15:55 95 23 130/72 (91) 99 09/17/20 15:50 99 22 143/76 (98) 99 09/17/20 15:46 98 21 2.0 09/17/20 15:45 96 23 136/64 (88) 100 09/17/20 15:40 98 23 127/72 (90) 100 09/17/20 15:30 97.2 99 23 130/74 (92) 99 ROS: unchanged from my initial evaluation on 09/09/20. RHYTHM: NSR, ST, PACs LUNGS: normal breath sounds CARDIAC: normal rate, regular rhythm, normal S1 and S2, systolic murmur - 1/6 systolic ej murmur at base ABDOMEN: normal bowel sounds, non tender, soft, no organomegaly EXTREMITIES: normal range of motion, non-tender Assessment/Plan Assessment/Plan Acute DVT - s/p IVC filter Severe anemia - s/p transfusions Hx GI Bleed COPD Hypertension/HHD Paroxysmal Atrial Fibrillation - remaining in sinus rhythm Non-sustained ventricular ectopy Cerebrovascular disease with dementia Acute on chronic diastolic CHF Iron deficiency DC anticoagulation Monitor Hb PPI rx Maintain low dose beta caroline - with "hold" parameter for low range BP. Iron replacement Reassess risk:benefit of anti-coagulation as an outpatient; may consider repeat colonoscopy and/or holter. DC planning Noah Gross MD Sep 18, 2020 13:29
--- NOTE | 2020-09-18 16:45 | General Progress Note ---
Subjective Allergies: Coded Allergies: No Known Allergies (Unverified , 09/09/20) Subjective Above noted non interactive s/p IVC filter Objective Last 24 Hour Vital Signs Date Time Temp Pulse Resp B/P (MAP) Pulse Ox O2 Delivery O2 Flow Rate FiO2 09/18/20 12:00 78 09/18/20 12:00 97.7 78 20 108/52 (70) 99 09/18/20 09:17 110/50 (70) 09/18/20 09:00 99 110/50 09/18/20 09:00 Room Air 09/18/20 08:00 82 09/18/20 08:00 97.9 97 20 99/58 (72) 99 09/18/20 04:00 98.6 91 18 101/60 (74) 96 09/18/20 04:00 98 09/18/20 00:00 98.5 96 18 117/62 (80) 96 09/17/20 21:00 Room Air 09/17/20 20:00 88 09/17/20 20:00 98.5 96 18 107/57 (74) 96 09/17/20 17:00 97.7 73 20 113/77 (89) 94 09/17/20 17:00 95 Intake and Output 09/17/20 09/18/20 19:00 07:00 Output Total 700 ml 800 ml Balance -700 ml -800 ml Output Urine Total 700 ml 800 ml Height (Feet): 5 Height (Inches): 5.00 Weight (Pounds): 166 Objective WDWN woman NCAT supple CTA RR Abd soft NT ND no edema Assessment/Plan Status: stable, progressing Assessment/Plan: Assessment - Severe anemia, microcytic and Iron deficient - large hiatal hernia - one possible cause of anemia - OB (+) stools - s/p EGD and incomplete colonoscopy - Dark stools, possible due to outpatient PO Fe - DVT -->no clinical e/o bleeding on Lovenox so far - OBS - COPD - HTN - atrial fib Recommendations - Transfuse PRN - PPI - IV Iron - monitor labs - no plans for repeat colonoscopy, unless significant bleeding - If H&H continues to be stable on lovenox, can consider converting to oral anticoaulants as outpatient Mario Felder MD Sep 18, 2020 16:45
[2020-09-18] MEDS: Miralax 17gm pkt ORAL SCH (20:31)
[2020-09-18] MEDS: Dyna-Hex 2% Top Sol 2oz TOPIC SCH (20:31)
[2020-09-18] MEDS ORDERED: HYDROcodone/Acetamin 5/325 tab ORAL PRN (22:30)
[2020-09-19] VITALS (7 sets, daily range): BP systolic 100–123; BP diastolic 46–75
[2020-09-19] MEDS: D5NS 1,000 ML IV SCH (06:19)
[2020-09-19] MEDS: Docusate 100mg cap ORAL SCH ×2 (09:00→17:10)
[2020-09-19] MEDS: Carvedilol 6.25mg Tab ORAL SCH (09:00)
[2020-09-19] MEDS: Sorbitol Solution UD 30ml ORAL SCH ×2 (09:00→17:11)
--- NOTE | 2020-09-19 10:27 | General Progress Note ---
Subjective ROS Limited/Unobtainable: No Constitutional: Reports: malaise, weakness HEENT: Reports: no symptoms Cardiovascular: Reports: no symptoms Respiratory: Reports: no symptoms Gastrointestinal/Abdominal: Reports: no symptoms Genitourinary: Reports: no symptoms Neurologic/Psychiatric: Reports: no symptoms Endocrine: Reports: no symptoms Hematologic/Lymphatic: Reports: no symptoms Allergies: Coded Allergies: No Known Allergies (Unverified , 09/09/20) All Systems: reviewed and negative except above Subjective no events. w/o complaints. eating. cooperative with care. labs pending. Objective Last 24 Hour Vital Signs Date Time Temp Pulse Resp B/P (MAP) Pulse Ox O2 Delivery O2 Flow Rate FiO2 09/19/20 08:00 97.7 83 20 105/67 (80) 96 09/19/20 04:00 97.7 82 16 100/60 (73) 98 09/19/20 00:30 123/75 (91) 09/19/20 00:00 97.9 76 16 100/46 (64) 98 09/18/20 21:00 Room Air 09/18/20 20:00 98.6 93 20 154/59 (90) 98 09/18/20 16:00 97.7 90 20 103/52 (69) 98 09/18/20 16:00 90 09/18/20 12:00 78 09/18/20 12:00 97.7 78 20 108/52 (70) 99 Intake and Output 09/18/20 09/19/20 19:00 07:00 Intake Total 350 ml 900 ml Output Total 400 ml 300 ml Balance -50 ml 600 ml Intake Oral 350 ml IV Total 900 ml Output Urine Total 400 ml 300 ml # Bowel Movements 1 Height (Feet): 5 Height (Inches): 5.00 Weight (Pounds): 166 Objective General Appearance: WD/WN, alert, confused EENT: normal ENT inspection Neck: normal alignment, supple Cardiovascular: normal peripheral pulses, normal rate, regular rhythm Respiratory/Chest: chest wall non-tender, lungs clear, normal breath sounds, no respiratory distress Edema: no edema noted Arm (L), no edema noted Arm (R) 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 normal, alert, responsive, disoriented Skin: normal pigmentation Lymphatic: normal anterior cervical (L), normal anterior cervical (R) Assessment/Plan Problem List: (1) Hypotension ICD Codes: I95.9 - Hypotension, unspecified SNOMED: 40718470 (2) Atrial fibrillation ICD Codes: I48.91 - Unspecified atrial fibrillation SNOMED: 27407766 (3) Severe anemia ICD Codes: D64.9 - Anemia, unspecified SNOMED: 947199570 (4) On continuous oral anticoagulation ICD Codes: Z79.01 - halfway (current) use of anticoagulants SNOMED: 571677970 Status: stable, progressing Assessment/Plan: cont PPI rx monitor h/h transfuse as needed cont current rx check covid- needed for snf dc planning when bed available await todays labs Sae Yañez MD Sep 19, 2020 10:27
[2020-09-19] MEDS: Pantoprazole Inj IVP SCH (10:39)
[2020-09-19] MEDS: Ascorbic Acid 500mg tab ORAL SCH ×2 (10:39→17:11)
[2020-09-19] MEDS: cefTRIAXone 1 GM in D5W 55 ML IVPB SCH (10:43)
[2020-09-19] MEDS: Enoxaparin 80mg Inj SUBQ SCH (10:55)
[2020-09-19 16:02] LABS: BASOPHILS % (AUTO) 1.8 % (0.0-2.0); EOSINOPHILS % (AUTO) 5.3 % (0.0-3.0); HEMATOCRIT 29.7 % (37.0-47.0); LYMPHOCYTES % (AUTO) 25.5 % (20.0-45.0); MEAN CORPUSCULAR VOLUME 92 FL (80-99); MONOCYTES % (AUTO) 11.7 % (1.0-10.0); NEUTROPHILS % (AUTO) 55.7 % (45.0-75.0); PLATELET COUNT 517 K/UL (150-450); RED BLOOD COUNT 3.23 M/UL (4.20-5.40); RED CELL DISTRIBUTION WIDTH 18.9 % (11.6-14.8); WHITE BLOOD COUNT 4.9 K/UL (4.8-10.8)
[2020-09-19 16:27] LABS: ALBUMIN 1.2 G/DL (3.4-5.0); ALBUMIN/GLOBULIN RATIO 0.4 (1.0-2.7); BILIRUBIN,TOTAL 0.2 MG/DL (0.2-1.0); CALCIUM 7.1 MG/DL (8.5-10.1); CREATININE 0.9 MG/DL (0.55-1.30); POTASSIUM 3.7 MMOL/L (3.5-5.1)
[2020-09-19] MEDS ORDERED: cefTRIAXone 1 GM in D5W 55 ML IVPB SCH (16:45)
[2020-09-19] MEDS ORDERED: Lidocaine 1% MPF 10mg/ml 5ml IM SCH (17:00)
--- NOTE | 2020-09-19 18:18 | Cardiology Progress Note ---
Subjective DATE OF SERVICE: Sep 19, 2020 Duplex revealed extensive acute RLE DVT. IVC filter placed; no bleeding complications noted. S/P PRBC transfusions on admit - hemoglobin has remained stable. EGD revealed diverticular tic and hiatal hernia; colonoscopy with black stool No signs of active bleeding at this time. Monitor: Sinus with rare atrial ectopy. NO EPISODES OF ATRIAL FIB since admit. 2D Echo: normal ejection fxn with mild degenerative valve disease Objective Last 24 Hour Vital Signs Date Time Temp Pulse Resp B/P (MAP) Pulse Ox O2 Delivery O2 Flow Rate FiO2 09/19/20 16:00 98.6 96 20 109/69 (82) 96 09/19/20 12:00 98.1 86 20 109/54 (72) 97 09/19/20 09:00 83 105/67 09/19/20 09:00 Room Air 09/19/20 08:00 97.7 83 20 105/67 (80) 96 09/19/20 04:00 97.7 82 16 100/60 (73) 98 09/19/20 00:30 123/75 (91) 09/19/20 00:00 97.9 76 16 100/46 (64) 98 09/18/20 21:00 Room Air 09/18/20 20:00 98.6 93 20 154/59 (90) 98 ROS: unchanged from my initial evaluation on 09/09/20. RHYTHM: NSR, ST, PACs LUNGS: normal breath sounds CARDIAC: normal rate, regular rhythm, normal S1 and S2, systolic murmur - 1/6 systolic ej murmur at base ABDOMEN: normal bowel sounds, non tender, soft, no organomegaly EXTREMITIES: normal range of motion, non-tender Laboratory Tests Test 09/19/20 15:50 White Blood Count 4.9 K/UL (4.8-10.8) Red Blood Count 3.23 M/UL (4.20-5.40) L Hemoglobin 9.0 G/DL (12.0-16.0) L Hematocrit 29.7 % (37.0-47.0) L Mean Corpuscular Volume 92 FL (80-99) Mean Corpuscular Hemoglobin 28.0 PG (27.0-31.0) Mean Corpuscular Hemoglobin Concent 30.4 G/DL (32.0-36.0) L Red Cell Distribution Width 18.9 % (11.6-14.8) H Platelet Count 517 K/UL (150-450) H Mean Platelet Volume 6.2 FL (6.5-10.1) L Neutrophils (%) (Auto) 55.7 % (45.0-75.0) Lymphocytes (%) (Auto) 25.5 % (20.0-45.0) Monocytes (%) (Auto) 11.7 % (1.0-10.0) H Eosinophils (%) (Auto) 5.3 % (0.0-3.0) H Basophils (%) (Auto) 1.8 % (0.0-2.0) Sodium Level 138 MMOL/L (136-145) Potassium Level 3.7 MMOL/L (3.5-5.1) Chloride Level 109 MMOL/L (98-107) H Carbon Dioxide Level 23 MMOL/L (21-32) Anion Gap 6 mmol/L (5-15) Blood Urea Nitrogen 5 mg/dL (7-18) L Creatinine 0.9 MG/DL (0.55-1.30) Estimat Glomerular Filtration Rate 59.7 mL/min (>60) Glucose Level 108 MG/DL (74-106) H Calcium Level 7.1 MG/DL (8.5-10.1) L Total Bilirubin 0.2 MG/DL (0.2-1.0) Aspartate Amino Transf (AST/SGOT) 19 U/L (15-37) Alanine Aminotransferase (ALT/SGPT) 8 U/L (12-78) L Alkaline Phosphatase 85 U/L (46-116) Total Protein 4.3 G/DL (6.4-8.2) L Albumin 1.2 G/DL (3.4-5.0) L Globulin 3.1 g/dL Albumin/Globulin Ratio 0.4 (1.0-2.7) L Assessment/Plan Assessment/Plan Acute DVT - s/p IVC filter Severe anemia - s/p transfusions Hx GI Bleed COPD Hypertension/HHD Paroxysmal Atrial Fibrillation - remaining in sinus rhythm Non-sustained ventricular ectopy Cerebrovascular disease with dementia Acute on chronic diastolic CHF Iron deficiency DC anticoagulation (lovenox); add prophylaxis dose heparin only. Monitor Hb PPI rx Maintain low dose beta caroline - with "hold" parameter for low range BP. Iron replacement Reassess risk:benefit of anti-coagulation as an outpatient; may consider repeat colonoscopy and/or holter. DC planning Noah Gross MD Sep 19, 2020 18:18
[2020-09-19] MEDS: Dyna-Hex 2% Top Sol 2oz TOPIC SCH (19:54)
[2020-09-19] MEDS: Heparin 5000 units/ml inj SUBQ SCH (20:04)
[2020-09-19] MEDS: Miralax 17gm pkt ORAL SCH (21:00)
[2020-09-20] VITALS: BP 130/64
[2020-09-20 04:00] VITALS: BP 122/78
[2020-09-20] MEDS ORDERED: ASCORBIC ACID500 M4 ORAL (07:10)
[2020-09-20] MEDS ORDERED: MIRTAZAPINE15 M3 ORAL (07:10)
[2020-09-20] MEDS ORDERED: COREG6.25 MG ORAL (07:10)
[2020-09-20] MEDS ORDERED: PANTOPRAZOLE SO40 MG ORAL (07:10)
[2020-09-20] MEDS ORDERED: SEROQUEL25 MG ORAL (07:10)
[2020-09-20] MEDS ORDERED: COLACE100 MG ORAL (07:10)
[2020-09-20 08:00] VITALS: BP 121/70
[2020-09-20] MEDS: Ascorbic Acid 500mg tab ORAL SCH (08:42)
[2020-09-20] MEDS: Sorbitol Solution UD 30ml ORAL SCH (08:42)
[2020-09-20] MEDS: Docusate 100mg cap ORAL SCH (08:43)
[2020-09-20] MEDS: Carvedilol 6.25mg Tab ORAL SCH (08:43)
[2020-09-20] MEDS: Heparin 5000 units/ml inj SUBQ SCH (08:45)
--- NOTE | 2020-09-20 09:01 | Discharge Summary ---
DATE OF ADMISSION: 09/09/2020 DATE OF DISCHARGE: 09/20/2020 ADMITTING DIAGNOSES: 1. Severe anemia. 2. Encephalopathy. 3. History of psychosis. 4. Dementia. 5. History for paroxysmal AFib. DISCHARGE DIAGNOSES: 1. Severe anemia. 2. Encephalopathy. 3. History of psychosis. 4. Dementia. 5. History for paroxysmal AFib. 6. UTI. 7. AFib. 8. Gastritis. HOSPITAL COURSE: The patient is an elderly female who was transferred from a care home facility with complaints of generalized weakness and malaise. She had a hemoglobin of 3. There are no reports of any gross bleeding. She was initially admitted to the intensive care unit. She was transfused multiple units of packed red blood cells. She underwent endoscopy. Unfortunately, it was a poor prep, but there were no obvious signs of bleeding. She had no further signs of AFib which she was diagnosed with acute DVT. After discussion with the patient's GI showroom consultant and the special delivery clerk, the patient was felt to be too high risk for anticoagulation. An IVC filter was placed under emergent conditions. On discharge, the patient was stable. She will be discharged back to the care home facility off anticoagulation now. DISCHARGE MEDICATIONS: Please see discharge medication list for discharge medications. DIET: Cardiac diet. ACTIVITIES: Ad rene. Sae Yañez M.D. DR: Elizabeth JOB#: [id number] CC:
[2020-09-20 12:00] VITALS: BP 122/81
[2020-09-20] MEDS ORDERED: NS 275ml ONE (15:59)
[2020-09-20] MEDS ORDERED: D5NS 1000ml IV ONE ×2 (15:59)
[2020-09-20] MEDS ORDERED: Tubing IV Secondary IV ONE (15:59)
--- NOTE | 2020-09-20 22:01 | Cardiology Progress Note ---
Subjective DATE OF SERVICE: Sep 20, 2020 Duplex revealed extensive acute RLE DVT. IVC filter placed; no bleeding complications noted. S/P PRBC transfusions on admit - hemoglobin has remained stable. EGD revealed diverticular tic and hiatal hernia; colonoscopy with black stool No signs of active bleeding at this time. Monitor: Sinus with rare atrial ectopy. NO EPISODES OF ATRIAL FIB since admit. 2D Echo: normal ejection fxn with mild degenerative valve disease Objective Last 24 Hour Vital Signs Date Time Temp Pulse Resp B/P (MAP) Pulse Ox O2 Delivery O2 Flow Rate FiO2 09/20/20 12:00 98.0 81 18 122/81 (95) 97 09/20/20 09:00 Room Air 09/20/20 08:43 78 121/70 09/20/20 08:00 97.9 78 18 121/70 (87) 97 09/20/20 04:00 98.1 93 16 122/78 (93) 97 09/20/20 00:00 98.3 98 18 130/64 (86) 97 ROS: unchanged from my initial evaluation on 09/09/20. RHYTHM: NSR, ST, PACs LUNGS: normal breath sounds CARDIAC: normal rate, regular rhythm, normal S1 and S2, systolic murmur - 1/6 systolic ej murmur at base ABDOMEN: normal bowel sounds, non tender, soft, no organomegaly EXTREMITIES: normal range of motion, non-tender Microbiology Date/Time Source Procedure Growth Status 09/18/20 15:00 Nasopharynx Coronavirus COVID-19 PCR ([facility]) - Final Complete Assessment/Plan Assessment/Plan Acute DVT - s/p IVC filter Severe anemia - s/p transfusions Hx GI Bleed COPD Hypertension/HHD Paroxysmal Atrial Fibrillation - remaining in sinus rhythm Non-sustained ventricular ectopy Cerebrovascular disease with dementia Acute on chronic diastolic CHF Iron deficiency DC all anticoagulation Monitor Hb at SNF. PPI rx Maintain low dose beta caroline - with "hold" parameter for low range BP. Iron replacement by oral route DC plan to SNF today Noah Gross MD Sep 20, 2020 22:01
--- NOTE | 2020-09-20 22:25 | General Progress Note ---
Subjective Allergies: Coded Allergies: No Known Allergies (Unverified , 09/09/20) Subjective Above noted non interactive s/p IVC filter Objective Last 24 Hour Vital Signs Date Time Temp Pulse Resp B/P (MAP) Pulse Ox O2 Delivery O2 Flow Rate FiO2 09/20/20 12:00 98.0 81 18 122/81 (95) 97 09/20/20 09:00 Room Air 09/20/20 08:43 78 121/70 09/20/20 08:00 97.9 78 18 121/70 (87) 97 09/20/20 04:00 98.1 93 16 122/78 (93) 97 09/20/20 00:00 98.3 98 18 130/64 (86) 97 Intake and Output 09/19/20 09/20/20 19:00 07:00 Intake Total 410 ml Output Total 250 ml 600 ml Balance -250 ml -190 ml Intake Oral 300 ml IV Total 110 ml Output Urine Total 250 ml 600 ml # Voids 1 Height (Feet): 5 Height (Inches): 5.00 Weight (Pounds): 166 Objective WDWN woman NCAT supple CTA RR Abd soft NT ND no edema Assessment/Plan Status: stable, progressing Assessment/Plan: Assessment - Severe anemia, microcytic and Iron deficient - large hiatal hernia - one possible cause of anemia - OB (+) stools - s/p EGD and incomplete colonoscopy - Dark stools, possible due to outpatient PO Fe - DVT -->no clinical e/o bleeding on Lovenox so far - OBS - COPD - HTN - atrial fib Recommendations - Transfuse PRN - PPI - IV Iron - monitor labs - no plans for repeat colonoscopy, unless significant bleeding - If H&H continues to be stable on lovenox, can consider converting to oral anticoaulants as outpatient - dc planning for today Mario Felder MD Sep 20, 2020 22:25
--- NOTE | 2020-09-24 | Procedure Note ---
DATE OF PROCEDURE: 09/13/2020 PROCEDURE: Upper gastrointestinal endoscopy as well as colonoscopy along with biopsies. SURGEON: Mario Felder M.D. ANESTHESIA: Please see separate anesthesiologist notes for details. PRE-ENDOSCOPIC DIAGNOSIS: Gastrointestinal bleeding. POST-ENDOSCOPIC DIAGNOSES: 1. Hiatal hernia. 2. Duodenal diverticulum. 3. Black stool throughout the colon without obvious evidence of bleeding. DESCRIPTION OF PROCEDURE: The procedure, its risks, indications, alternatives, and possible complications were explained and informed consent was obtained. The patient was then sedated and a diagnostic upper endoscope was introduced through the oropharynx and advanced to the duodenum. The endoscope was then gradually withdrawn. The mucosa was examined carefully. Examination of the upper gastrointestinal mucosa revealed a hiatal hernia and a duodenal diverticulum. Biopsy of the duodenum was sent to Pathology for review. Thereafter, the patient was turned around. Rectal exam was done. The colonoscope was introduced into the rectum and advanced to the cecum. The cecum was identified by appearance of the ileocecal valve. The colonoscope was then gradually withdrawn and mucosa examined carefully. Examination of the colonic mucosa revealed black stools throughout the colon, but the stools did not resemble melena. No evidence of polyps or masses was identified. RECOMMENDATIONS: 1. Follow up biopsy results. 2. Resume nutrition. 3. Monitor CBC. Mario Felder M.D. DR: ADRIAN JOB#: [id number] CC:
== END 2020-09-20 16:00 | DRG 663 ==
LOC: EDBD 09:39 → EMR 10:26 → ICU 11:10 → EDBEDREQSVC 11:29 → EDBEDREQ 13:03 → 2E 09-11 05:45 → 4E 09-18 19:03
PROC: 30233N1 Transfusion of Nonautologous Red Blood Cells into Peripheral Vein, Percutaneous Approach (ICD-10-PCS; principal; 2020-09-09)
PROC: 06HM33Z Insertion of Infusion Device into Right Femoral Vein, Percutaneous Approach (ICD-10-PCS; 2020-09-09)
PROC: 0DB98ZX Excision of Duodenum, Via Natural or Artificial Opening Endoscopic, Diagnostic (ICD-10-PCS; 2020-09-13)
PROC: 0DJD8ZZ Inspection of Lower Intestinal Tract, Via Natural or Artificial Opening Endoscopic (ICD-10-PCS; 2020-09-13)
PROC: 06H03DZ Insertion of Intraluminal Device into Inferior Vena Cava, Percutaneous Approach (ICD-10-PCS; 2020-09-17)
DX: D50.9 Iron deficiency anemia, unspecified (principal); E43 Unspecified severe protein-calorie malnutrition; I50.33 Acute on chronic diastolic (congestive) heart failure; G92 Toxic encephalopathy; N39.0 Urinary tract infection, site not specified; I95.9 Hypotension, unspecified; I48.0 Paroxysmal atrial fibrillation; F01.51 Vascular dementia, unspecified severity, with behavioral disturbance; I11.0 Hypertensive heart disease with heart failure; J44.9 Chronic obstructive pulmonary disease, unspecified; I25.2 Old myocardial infarction; I82.401 Acute embolism and thrombosis of unspecified deep veins of right lower extremity; I48.91 Unspecified atrial fibrillation; Z79.01 Long term (current) use of anticoagulants; K29.70 Gastritis, unspecified, without bleeding; F01.50 Vascular dementia, unspecified severity, without behavioral disturbance, psychotic disturbance, mood disturbance, and anxiety; I49.3 Ventricular premature depolarization; K44.9 Diaphragmatic hernia without obstruction or gangrene; I51.3 Intracardiac thrombosis, not elsewhere classified; K57.10 Diverticulosis of small intestine without perforation or abscess without bleeding
CPT/HCPCS: 36415; 71045; 76937; 80048; 80053; 81003; 82270; 82550; 82553; 83540; 83550; 83605; 83690; 83735; 83880; 84100; 84443; 84484; 85007; 85025; 85610; 85730; 86850; 86900; 86901; 86920; 87040; 87081; 87086; 87181; 93005; 93306; 93970; 94003; 94150; 96361; 96365; 96375; 99291; J7030; J8499; U0002